=== PATIENT | female | born 1940 | race Caucasian/White ===

== ENCOUNTER 2016-10-04 06:28 | Inpatient (IN) | payer MEDICARE ==
[2016-10-04] VITALS (26 sets, daily range): BP systolic 92–141; BP diastolic 58–98; PULSE 40–128; RESP 14–27; TEMP 97.8–98.5; O2SAT 91–97
[~2016-10-04] VITALS: Ht 160 cm; Wt 76.4 kg
[~2016-10-04 06:28] MED LIST: ALEN70 PO; ASPI325T PO; ASPI325T24 PO; CALC500 PO; CLOP75 PO; GLIM2TAB PO; HYDR5SOL PO; IBUP800 PO; LISI-363 PO; METF-324 PO; OMEG100037 PO; OMEP20TA PO; SERT100 PO; SIMV40TA PO
[2016-10-04] MEDS ORDERED: DILTIAZEM HCL 25 MG/5 ML VIAL IVP ONE (06:45)
[2016-10-04] MEDS ORDERED: DILTIAZEM INJ 125 MG in SODIUM CHLORIDE 0.9% INJ 100 ML IV SCH (06:45)
--- NOTE | 2016-10-04 06:50 | PD ---
HPI Chief Complaint: Chest Pain Time Seen by Provider: 06:43 Travel History International Travel<30 days: No Contact w/Intl Traveler<30days: No Traveled to known affect area: No History of Present Illness HPI The patient is a 76-year-old female with no known history of heart disease or atrial fibrillation who was awoken at 5:30 this morning by a pressure sensation which was constant all over her chest. She felt her heart beating rapidly and irregular beating. She states she has never had an episode like this before. She denies any syncopal or near syncopal spells. She did have some nausea denies any shortness of breath or diaphoresis. There was radiation of pain to her arms. She does have a history of xha-icxnabd-ufzavyhzl diabetes, hypertension, elevated cholesterol but does not smoke. She took a 325 mg aspirin this morning like she does every morning. PFSH Past Medical History Cardiovascular Problems: Yes High Cholesterol: Yes Diabetes: Yes (Oral medications) Diminished Hearing: No Hypertension: Yes Menopausal: Yes Past Surgical History Cholecystectomy: Yes Other Surgery: Yes (VARICOSE VEIN REMOVAL BILATERAL LEGS) Social History Alcohol Use: No Tobacco Use: No Substance Use: No Allergies-Medications (Allergen,Severity, Reaction): Coded Allergies: No Known Allergies (Unverified , 05/03/15) Reported Meds & Prescriptions Reported Meds & Active Scripts Active Reported Motrin 800 Mg Tab (Ibuprofen) 800 Mg Tab 800 Mg PO TID PRN Vituz (Hydrocodone-Chlorpheniramine) 1 Ml Angie 1 Tsp PO Q12 PRN Fish Oil 1000 mg (Calhoun-3 Fatty Acids) 1 Cap Cap 1,000 Mg PO HS Oscal 500 (Calcium Carbonate) 500 Mg Tab 500 Mg PO BID Ecotrin (Aspirin) 325 Mg Tabec 325 Mg PO HS Glimepiride 2 Mg Tab 8 Mg PO DAILY Fosamax (Alendronate Sodium) 70 Mg Tab 70 Mg PO WEEKLY Simvastatin 40 Mg Tab 40 Mg PO HS Aspirin 325 mg (Aspirin) 325 Mg Tab 325 Mg PO DAILY Zoloft (Sertraline HCl) 100 Mg Tab 150 Mg PO HS Omeprazole 20 mg (Omeprazole) 20 Mg Tab 40 Mg PO DAILY Lisinopril 20 mg (Lisinopril) 20 Mg Tab 10 Mg PO DAILY Glucophage (Metformin HCl) 1,000 Mg Tab 1,000 Mg PO BID Plavix (Clopidogrel Bisulfate) 75 Mg Tab 75 Mg PO DAILY Review of Systems Except as stated in HPI: all other systems reviewed are Neg Physical Exam Narrative GENERAL: The patient is alert, oriented 3 and moderate apparent distress with her chest discomfort. She does appear slightly anxious. Her blood pressure is 139/98 and pulse rate is 155 which is an irregular/irregular rhythm. The rest of the vital signs are normal. SKIN: Warm and dry. HEAD: Atraumatic. Normocephalic. EYES: Pupils equal and round. No scleral icterus. No injection or drainage. ENT: No nasal bleeding or discharge. Mucous membranes pink and moist. NECK: Trachea midline. No JVD. CARDIOVASCULAR: Atrial fibrillation with rapid ventricular response. No murmur appreciated. RESPIRATORY: No accessory muscle use. Clear to auscultation. Breath sounds equal bilaterally. GASTROINTESTINAL: Abdomen soft, non-tender, nondistended. Hepatic and splenic margins not palpable. MUSCULOSKELETAL: No obvious deformities. No clubbing. No cyanosis. No edema. NEUROLOGICAL: Awake and alert. No obvious cranial nerve deficits. Motor grossly within normal limits. Normal speech. PSYCHIATRIC: Appropriate mood and affect; insight and judgment normal. Data Data Last Documented VS Vital Signs Date Time Temp Pulse Resp B/P Pulse Ox O2 Delivery O2 Flow Rate FiO2 10/04/16 06:47 155 10/04/16 06:36 97.9 22 139/98 96 Orders Vital Signs (Adult) Q15MX4,Q4H (10/04/16 06:43) Family Support Worker / Telemetry THERESA.Q8H (10/04/16 06:43) Cardiac Rhythm THERESA.Q8H (10/04/16 06:43) ^ Notify Dr: Other (10/04/16 06:43) Diltiazem Inj (Cardizem Inj) (10/04/16 06:45) Diltiazem Inj (Cardizem Inj) (10/04/16 06:45) Electrocardiogram (10/04/16 06:46) B-Type Natriuretic Peptide (10/04/16 06:46) Complete Blood Count With Diff (10/04/16 06:46) Comprehensive Metabolic Panel (10/04/16 06:46) Magnesium (Mg) (10/04/16 06:46) Prothrombin Time / Inr (Pt) (10/04/16 06:46) Act Partial Throm Time (Ptt) (10/04/16 06:46) Troponin I (10/04/16 06:46) Chest, Single Ap (10/04/16 06:46) Ecg Monitoring (10/04/16 06:46) Iv Access Insert/Monitor (10/04/16 06:46) Oximetry (10/04/16 06:46) Oxygen Administration (10/04/16 06:46) Sodium Chloride 0.9% Flush (Ns Flush) (10/04/16 07:00) Diltiazem Inj (Cardizem Inj) (10/04/16 07:00) MDM Medical Decision Making Medical Screen Exam Complete: Yes Emergency Medical Condition: Yes Medical Record Reviewed: Yes Differential Diagnosis Atrial fibrillation with rapid ventricular response, electrolyte disorder, acute coronary syndrome, renal insufficiency, congestive heart failure, Narrative Course The patient has atrial fibrillation with rapid ventricular response. This is her first episode of this. She is symptomatic with this and has chest pressure associated with this rhythm. It is now 0700 and the patient is transferred to Dr. Vazquez. Brian Mc MD Oct 04, 2016 06:50
[2016-10-04] MEDS ORDERED: DILTIAZEM INJ 100 MG in SODIUM CHLORIDE 0.9% INJ 100 ML IV SCH (07:00)
[2016-10-04] MEDS ORDERED: SODIUM CHLORIDE 0.9% FLUSH 5 ML FLUSH IVF PRN (07:00)
[2016-10-04 07:04] LABS: AUTOMATED NEUTROPHIL # 2.8 TH/MM3 (1.8-7.7); BASOPHIL % 0.6 % (0.0-2.0); EOSINOPHIL # 0.1 TH/MM3 (0-0.4); EOSINOPHIL % 1.4 % (0.0-4.0); LYMPH % 42.7 % (9.0-44.0); LYMPHOCYTE # 2.5 TH/MM3 (1.0-4.8); MEAN CELL VOLUME 95.9 FL (80.0-100.0); MEAN CORPUSCULAR HEMOGLOBIN 31.5 PG (27.0-34.0); MEAN CORPUSCULAR HGB CONC 32.9 % (32.0-36.0); MONO % 9.3 % (0.0-8.0); PLATELET COUNT 189 TH/MM3 (150-450); RED CELL DISTRIBUTION WIDTH 12.7 % (11.6-17.2); WHITE BLOOD COUNT 5.9 TH/MM3 (4.0-11.0)
[2016-10-04 07:10] LABS: HEMO FLAGS DIFF FINAL
[2016-10-04] MEDS ORDERED: CYAN100017 PO (07:12)
[2016-10-04] MEDS ORDERED: CYAN100025 SL (07:12)
[2016-10-04] MEDS ORDERED: CHOL1CAP14 PO (07:12)
[2016-10-04] MEDS ORDERED: ASPI325T PO (07:12)
[2016-10-04] MEDS ORDERED: LOSA50TA PO (07:12)
[2016-10-04] MEDS ORDERED: CELE20TA PO (07:12)
[2016-10-04] MEDS ORDERED: FOSA70TA PO (07:12)
[2016-10-04] MEDS ORDERED: ACTO45TA8 PO (07:12)
[2016-10-04] MEDS ORDERED: OMEP20TA PO (07:12)
[2016-10-04] MEDS ORDERED: ATOR40TA16 PO (07:12)
[2016-10-04] MEDS ORDERED: METF1000 PO (07:12)
[2016-10-04] MEDS ORDERED: GLIM1TAB PO (07:12)
--- NOTE | 2016-10-04 07:12 | RADHPO ---
EXAM DATE/TIME: 10/04/2016 06:49 [facility] COMPARISON: CHEST PA & LAT, November 14, 2013, 4:30. INDICATIONS : Chest pain/pressure, rapid heart rate, pain radiating to arms. MEDICAL HISTORY : Hypertension. Hypercholesterolemia. Diabetic. SURGICAL HISTORY : Cholecystectomy. ENCOUNTER: Initial ACUITY: 1 day PAIN SCORE: 6/10 LOCATION: chest FINDINGS: Slight cardiomegaly has not changed. There are atherosclerotic calcifications of the aorta due to chr onic atherosclerotic disease. Lungs are clear. CONCLUSION: No acute cardiopulmonary disease. Dayana Loera MD on October 04, 2016 at 7:10 Board Certified Radiologist. This report was verified electronically.
[2016-10-04 07:13] LABS: CHLORIDE 99 MEQ/L (98-107); POTASSIUM 3.6 MEQ/L (3.5-5.1); SODIUM (NA) 138 MEQ/L (136-145)
[2016-10-04 07:16] LABS: ANION GAP 10 MEQ/L (5-15); BICARBONATE 29.4 MEQ/L (21.0-32.0); BLOOD UREA NITROGEN 15 MG/DL (7-18); MAGNESIUM 1.7 MG/DL (1.5-2.5)
[2016-10-04 07:17] LABS: INTERNATIONAL NORMALIZED RATIO 0.9 RATIO; PROTHROMBIN TIME - PATIENT 10.4 SEC (9.8-11.6)
[2016-10-04 07:19] LABS: ALT (GPT) 29 U/L (10-53); AST (GOT) 19 U/L (15-37)
[2016-10-04 07:20] LABS: GLOMERULAR FILTRATION RATE 99 ML/MIN (>89)
[2016-10-04 07:21] LABS: TOTAL BILIRUBIN ADULT 0.6 MG/DL (0.2-1.0)
[2016-10-04 07:22] LABS: ALKALINE PHOSPHATASE 59 U/L (45-117)
[2016-10-04] MEDS ORDERED: ENOXAPARIN SODIUM 80 MG/0.8 ML SYRINGE SQ ONE (08:00)
[2016-10-04] MEDS ORDERED: ONDANSETRON HCL 4 MG/2 ML VIAL IVP PRN (08:00)
[2016-10-04] MEDS ORDERED: SODIUM CHLORIDE 0.9% FLUSH 5 ML FLUSH FLUSH PRN (08:00)
[2016-10-04] MEDS ORDERED: NALOXONE HCL 0.4 MG/ML AMP IV PRN (08:00)
[2016-10-04] MEDS ORDERED: ACETAMINOPHEN 325 MG TAB PO PRN (08:00)
[2016-10-04] MEDS: SODIUM CHLORIDE 0.9% FLUSH 5 ML FLUSH FLUSH SCH ×2 (08:16→21:39)
--- NOTE | 2016-10-04 09:16 | PD ---
Physical Exam Narrative GENERAL: Well-nourished, well-developed patient. SKIN: Warm and dry. HEAD: Normocephalic and atraumatic. EYES: No injection or drainage. ENT: No nasal drainage noted. NECK: Supple, trachea midline. CARDIOVASCULAR: irregular rate and rhythm RESPIRATORY: No increased effort. No accessory muscle use. NEUROLOGICAL: Awake and alert. Motor and sensory grossly within normal limits. Normal speech. Data Data Last Documented VS Vital Signs Date Time Temp Pulse Resp B/P Pulse Ox O2 Delivery O2 Flow Rate FiO2 10/04/16 07:35 89 116/77 10/04/16 07:13 22 95 Room Air 10/04/16 06:36 97.9 Orders Vital Signs (Adult) Q15MX4,Q4H (10/04/16 06:43) Clay Press Operator / Telemetry THERESA.Q8H (10/04/16 06:43) Cardiac Rhythm THERESA.Q8H (10/04/16 06:43) ^ Notify Dr: Other (10/04/16 06:43) Diltiazem Inj (Cardizem Inj) (10/04/16 06:45) Diltiazem Inj (Cardizem Inj) (10/04/16 06:45) Electrocardiogram (10/04/16 06:46) B-Type Natriuretic Peptide (10/04/16 06:46) Complete Blood Count With Diff (10/04/16 06:46) Comprehensive Metabolic Panel (10/04/16 06:46) Magnesium (Mg) (10/04/16 06:46) Prothrombin Time / Inr (Pt) (10/04/16 06:46) Act Partial Throm Time (Ptt) (10/04/16 06:46) Troponin I (10/04/16 06:46) Chest, Single Ap (10/04/16 06:46) Ecg Monitoring (10/04/16 06:46) Iv Access Insert/Monitor (10/04/16 06:46) Oximetry (10/04/16 06:46) Oxygen Administration (10/04/16 06:46) Sodium Chloride 0.9% Flush (Ns Flush) (10/04/16 07:00) Diltiazem Inj (Cardizem Inj) (10/04/16 07:00) Admit Order (Ed Use Only) (10/04/16 07:50) Labs Laboratory Tests Test 10/04/16 10/04/16 03:32 06:30 White Blood Count 5.9 TH/MM3 Red Blood Count 5.00 MIL/MM3 Hemoglobin 15.8 GM/DL Hematocrit 48.0 % Mean Corpuscular Volume 95.9 FL Mean Corpuscular Hemoglobin 31.5 PG Mean Corpuscular Hemoglobin 32.9 % Concent Red Cell Distribution Width 12.7 % Platelet Count 189 TH/MM3 Mean Platelet Volume 8.8 FL Neutrophils (%) (Auto) 46.0 % Lymphocytes (%) (Auto) 42.7 % Monocytes (%) (Auto) 9.3 % Eosinophils (%) (Auto) 1.4 % Basophils (%) (Auto) 0.6 % Neutrophils # (Auto) 2.8 TH/MM3 Lymphocytes # (Auto) 2.5 TH/MM3 Monocytes # (Auto) 0.5 TH/MM3 Eosinophils # (Auto) 0.1 TH/MM3 Basophils # (Auto) 0.0 TH/MM3 CBC Comment DIFF FINAL Differential Comment Prothrombin Time 10.4 SEC Prothromb Time International 0.9 RATIO Ratio Activated Partial 25.0 SEC Thromboplast Time Sodium Level 138 MEQ/L Potassium Level 3.6 MEQ/L Chloride Level 99 MEQ/L Carbon Dioxide Level 29.4 MEQ/L Anion Gap 10 MEQ/L Blood Urea Nitrogen 15 MG/DL Creatinine 0.59 MG/DL Estimat Glomerular Filtration 99 ML/MIN Rate Random Glucose 212 MG/DL Calcium Level 9.2 MG/DL Magnesium Level 1.7 MG/DL Total Bilirubin 0.6 MG/DL Aspartate Amino Transf 19 U/L (AST/SGOT) Alanine Aminotransferase 29 U/L (ALT/SGPT) Alkaline Phosphatase 59 U/L Troponin I 0.02 NG/ML B-Type Natriuretic Peptide 138 PG/ML Total Protein 8.0 GM/DL Albumin 4.2 GM/DL [facility] Supervised Visit with ARIANA: No Interpretation(s) CBC & BMP Diagram 10/04/16 03:32 10/04/16 06:30 Last 24 hours Impressions Chest X-Ray 10/04/16 0646 Signed Impressions: Service Date/Time: Tuesday, October 04, 2016 06:49 - CONCLUSION: No acute cardiopulmonary disease. Dayana Loera MD Narrative Course Signed over to me to follow blood work and admit for new onset atrial fibrillation with RVR. Blood work shows no emergent abnormalities. Patient is stable on 5 mg of Cardizem drip, will admit to the hospital for further care. Patient updated and agrees to plan of care. Physician Communication Physician Communication dr navarrete states to admit to Dr. Mcintyre in intermediate care Diagnosis Primary Impression: Atrial fibrillation with RVR Admitting Information Admitting Physician Requests: Admit Juanita Bess MD Oct 04, 2016 09:16
--- NOTE | 2016-10-04 16:57 | EKG ---
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 DOCTOR: Ave Avalos Interpretating Date/Time 10/04/2016 16:57:12
[2016-10-04] MEDS ORDERED: WARFARIN SOD 5 MG TAB PO ONE (18:00)
--- NOTE | 2016-10-04 19:09 | MB ---
cc: ALISTAIR ABRAHAM M.D. DATE OF CONSULTATION 10/04/16 Debbie is a very pleasant 76-year lady who awoke with chest pain around 5:30 this morning described as a pressure-like sensation. She also felt palpitations and irregular heartbeat. She was found to be in atrial fibrillation with rapid ventricular response. She does feel better now. She is pain free. She otherwise denies any fever, chills, cough GI or bleeding, paroxysmal nocturnal dyspnea, orthopnea, syncope or dizziness. PAST MEDICAL HISTORY 1. Diabetes, 2. Hypertension, 3. Hyperlipidemia, 4. Hypertension, 5. Menopause 6. Cholecystectomy 7. Varicose vein removal bilateral legs. SOCIAL HISTORY Denies tobacco or alcohol use. ALLERGIES None. MEDICATIONS Prior to admission 1. Motrin 2. ____ 3. Fish oil 4. Os-Carlos 5. Aspirin 325, 6. Glimepiride 7. Fosamax 8. Simvastatin 40 at bedtime, 9. Aspirin 325 daily. 10. Zoloft 11. Omeprazole 12. Lisinopril 20 13. Glucophage 1000 twice a day 14. Plavix 75 mg daily In the hospital, 1. Lovenox 70 mg subcu x1 2. Cardizem drip. PHYSICAL EXAMINATION VITAL SIGNS: Blood pressure 116/79, pulse 74, respiratory rate 17, temperature 97.8. GENERAL: General: She is alert and oriented time three in no acute distress NECK: Supple. No JVD or bruit CARDIOVASCULAR: S1, S2. No murmurs, rubs or gallops. LUNGS: Clear to auscultation bilaterally ABDOMEN: Soft, nontender, positive bowel sounds. EXTREMITIES: No lower extremity edema. LABORATORY DATA White count 5.9. Hemoglobin 15.8. hematocrit 48.0, platelet count 189. Sodium 138, potassium 3.6, congestive heart failure 99, bicarb 29.1, BUN 15, creatinine 0.59. BNP is 138. Troponin is 0.2. INR 0.9. IMAGING STUDIES Chest x-ray - No acute cardiopulmonary disease. CARDIOLOGY STUDIES EKG shows atrial fibrillation at a rate of 155 beats per minute, left ventricular hypertrophy, right bundle-branch block, nonspecific ST-T wave changes. DIAGNOSES 1. Unstable angina 2. Atrial fibrillation with rapid ventricular response 3. Diabetes. 4. Hypertension 5. Hyperlipidemia. DISCUSSION The patient's BONIFACIO score is 3 due to her age greater than 70, history of hypertension and history of diabetes. Therefore, I have recommended Coumadin or oral anticoagulated agent such as Pradaxa, Xarelto, and Eliquis. The patient has chosen to be on Coumadin. I do recommend Coumadin. She will need an INR or two to three. We will need to transition her to oral Cardizem as well. MD NATTY Kruse/ /5:36 PM /6:40 PM
[2016-10-04] MEDS ORDERED: ALENDRONATE SODIUM 70 MG TAB PO SCH (21:00)
[2016-10-04] MEDS ORDERED: PIOGLITAZONE HCL 45 MG TAB PO SCH (21:00)
[2016-10-04] MEDS: metFORMIN HCL 500 MG TAB PO SCH (21:35)
[2016-10-04] MEDS: ASPIRIN 325 MG TAB PO SCH (21:35)
[2016-10-04] MEDS: ATORVASTATIN 40 MG TAB PO SCH (21:36)
[2016-10-04] MEDS: LOSARTAN 50 MG TAB PO SCH (21:36)
[2016-10-04] MEDS: PANTOPRAZOLE SOD 20 MG DELAYED RELEASE TAB PO SCH (21:36)
[2016-10-04] MEDS: CYANOCOBALAMIN 1,000 MCG TAB PO SCH (21:37)
[2016-10-04] MEDS: CITALOPRAM HYDROBROMIDE 20 MG TAB PO SCH (21:39)
[2016-10-04] MEDS: PIOGLITAZONE HCL 15 MG TAB PO SCH (21:45)
[2016-10-04] MEDS: CHOLECALCIFEROL (VIT D3) 5000 UNIT CAP PO SCH (21:53)
[2016-10-04] MEDS: GLIMEPIRIDE 1 MG TAB PO SCH (21:53)
--- NOTE | 2016-10-04 22:20 | MH ---
cc: RUBEN JEAN MD DATE OF ADMISSION 10/04/2016 CHIEF COMPLAINT Chest pain HISTORY OF PRESENT ILLNESS This is a 76-year old female with past medical-surgical history significant for hyperlipidemia, diabetes mellitus, hypertension, history of varicose vein removal bilateral leg, cholecystectomy, who came to the ER at [facility]. She woke up this morning with a pressure in the chest. She felt her heart beating rapidly and she said that she has never had episodes like this before. She denies any syncopal or near syncopal episode. She denies any nausea, vomiting or shortness of breath. No diaphoresis. The pain radiated to the arms, history of non-insulin dependent diabetes mellitus, hypertension and hyperlipidemia but he does not smoke. She 325 mg aspirin this morning. Other than that nothing significant. PAST MEDICAL HISTORY/PAST SURGICAL HISTORY As dictated above. SOCIAL HISTORY Denies smoking or drinking or taking any drugs. 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 FAMILY HISTORY Significant for mother who had coronary artery disease. ALLERGIES NO KNOWN DRUG ALLERGIES. MEDICATIONS 1. Motrin 8 mg p.o. t.i.d. 2. Hydrocodone 3. Chlorpromazine one tsp full by mouth q.12 h p.r.n. pain. 4. Fish oil 1000 mg p.o. daily, 5. Ecotrin 325 mg by mouth at bedtime 6. 2 mg by mouth daily. 7. Fosamax 70 mg by mouth weekly 8. of 40 mg at bedtime pain 9. Aspirin 325 mg p.o. daily. 10. Zoloft 100 mg at bedtime. 11. Omeprazole 20 mg by mouth daily 12. Lisinopril 20 mg p.o. daily. 13. Metformin 1000 mg p.o. b.i.d. 14. Plavix 75 mg p.o. daily. REVIEW OF SYSTEMS All review of systems are negative at the time of examination. PHYSICAL EXAMINATION GENERAL: This is a 76-year female sitting on the bed not in acute distress. VITAL SIGNS: Temperature of 98.2, heart rate 78, respirations 16, blood pressure 100/67, O2 saturation 95% room air. HEENT: Normocephalic, atraumatic. EOMI. PERRL. Oral mucosa moist. NECK: Supple. No visible thyromegaly or neck mass, trachea is central. CVS: Regular rate and rhythm. LUNGS: Respirations clear to auscultation bilaterally. ABDOMEN: Soft, nontender. Bowel sounds audible. EXTREMITIES: No cyanosis or clubbing. Full range of motion of all extremities. NEUROLOGIC: Awake, alert, oriented x4. No focal deficits. SKIN: Warm and dry. PSYCHIATRIC: Cooperative. Mood and affect are normal. LABORATORY DATA CBC is totally unremarkable except for Hemoglobin 15.8, hematocrit 48.0. BMP totally unremarkable except for glucose 212 high. PT 10.4, INR 0.9, APTT 25.0. IMAGING STUDIES Chest x-ray was done and shows no acute cardiopulmonary disease. ASSESSMENT/PLAN This is a 76-year female who came to the ER diagnosed with 1. Chest pain, rule out acute coronary syndrome. Cardiac enzymes within normal limits. Cardiology consulted. Further recommendation per cardiology. 2. History of hyperlipidemia. Continue home medication. 3. History of diabetes mellitus. ADA 1800 ___diet. NovoLog low-dose sliding scale. Check blood sugars at bedtime and monitor blood sugar. Continue home medication. 4. History of hypertension. Continue home medications 5. History of osteoporosis. Continue with Fosamax. 6. DVT prophylaxis with SCDs 7. GI prophylaxis. Protonix 40 mg p.o. daily. We are going to manage the patient on daily basis and make recommendation on daily basis. Ruben Jean MD EA/ /8:57 PM /9:48 PM
[2016-10-05] VITALS (17 sets, daily range): BP systolic 96–153; BP diastolic 48–70; PULSE 38–68; RESP 7–25; TEMP 97.3–98.6; O2SAT 94–97
[2016-10-05] MEDS: GLIMEPIRIDE 1 MG TAB PO SCH ×2 (05:58→17:12)
[2016-10-05 07:00] LABS: HEMATOCRIT 44.7 % (35.0-46.0); MEAN CELL VOLUME 96.3 FL (80.0-100.0); MEAN CORPUSCULAR HGB CONC 33.2 % (32.0-36.0); PLATELET COUNT 168 TH/MM3 (150-450); PROTHROMBIN TIME - PATIENT 10.9 SEC (9.8-11.6); RED BLOOD COUNT 4.64 MIL/MM3 (4.00-5.30)
--- NOTE | 2016-10-05 07:14 | HHI.PR ---
Subjective History of Present Illness patient feel better have atrial fibrillation with RVR on diltiazem ..now in sinus bradycardia d/w myrna BATCH ROOM TECHNICIAN at bed side. cardiology input noted started on lovenox and coumadin. Review of Systems Constitutional Constitutional: Fatigue, Weakness Cardiology CV Remarks bradycardia. Vitals/Results Intake & Output 10/04/16 10/04/16 10/05/16 15:00 23:00 07:00 Intake Total 240 ml 60 ml Output Total 250 ml 250 ml Balance -250 ml 240 ml -190 ml Intake Oral 240 ml 60 ml Output Urine Total 250 ml 250 ml # Voids 1 # Bowel Movements 1 Vital Signs Vital Signs Date Time Temp Pulse Resp B/P Pulse Ox O2 Delivery O2 Flow Rate FiO2 10/05/16 06:00 50 10/05/16 06:00 50 25 153/69 10/05/16 05:00 42 19 123/64 95 10/05/16 05:00 42 10/05/16 04:00 98.6 40 16 123/69 95 10/05/16 04:00 40 10/05/16 03:00 38 18 98/48 95 10/05/16 02:00 40 10/05/16 02:00 40 19 116/60 96 10/05/16 01:00 42 22 132/70 94 10/05/16 00:00 97.7 38 19 109/68 95 10/05/16 00:00 38 10/04/16 23:00 40 10/04/16 23:00 40 17 119/75 95 10/04/16 22:00 40 10/04/16 22:00 40 27 141/72 95 10/04/16 21:16 93 21 10/04/16 21:00 94 Nasal Cannula 2.00 10/04/16 21:00 98.2 46 24 119/71 91 10/04/16 21:00 47 10/04/16 20:30 139/71 10/04/16 20:08 48 16 108/71 95 Room Air 10/04/16 19:25 98.2 78 16 100/67 95 Room Air 10/04/16 19:25 16 95 Room Air 10/04/16 17:55 98.2 64 17 116/77 93 Room Air 10/04/16 17:29 94 Nasal Cannula 2.00 10/04/16 16:30 74 17 116/79 92 Nasal Cannula 2 10/04/16 14:44 Room Air 10/04/16 14:13 97.8 74 14 100/67 94 Room Air 10/04/16 13:04 73 17 92/58 94 Room Air 10/04/16 11:48 98.5 78 16 115/64 93 Room Air 10/04/16 10:47 81 17 102/69 96 Room Air 10/04/16 10:20 96 113/67 10/04/16 10:00 99 101/69 10/04/16 09:45 93 102/68 97 10/04/16 09:42 125 114/66 10/04/16 09:35 118 105/72 10/04/16 09:22 128 119/89 10/04/16 08:15 94 124/67 10/04/16 07:55 86 119/71 10/04/16 07:35 89 116/77 CBC/BMP: 10/04/16 0332 10/04/16 0630 Lab Results Laboratory Tests Test 10/05/16 06:18 Prothrombin Time 10.9 SEC Prothromb Time International 1.0 RATIO Ratio Physical Exam General General Appearance: Well Developed, Well Nourished, No Acute Distress, Comfortable Eyes Eye Exam: Pupils Equal, Pupils Reactive, Sclera White, Extraocular Movement Intact Throat Throat Exam: Oral Mucosa [place] & Moist, Oral Pharynx Normal Neck Neck Exam: Neck Supple, Trachea Midline Pulmonary Resp Exam: Clear Bilaterally, Breath Sounds Equal Cardiology CV Exam: Regular, Normal Sinus Rhythm Gastrointestinal/Abdomen GI Exam: Soft, Non-Tender, Bowel Sounds Present Musculoskeletal MS Exam: Normal Tone Integumentary Skin Exam: Clear, Warm, Dry, Intact, Normal Turgor Neurologic Neuro Exam: Alert, Awake, Oriented, Speech Clear, No Focal Deficits VTE Prophylaxis VTE Prophylaxis Meds: Lovenox PUD Prophylasis PUD Prophylaxis: Protonix Assessment/Plan Assessment/Plan ASSESSMENT/PLAN This is a 76-year female who came to the ER diagnosed with 1. Chest pain, rule out acute coronary syndrome. Cardiac enzymes within normal limits. Cardiology input noted. Further recommendation per cardiology. 2. History of hyperlipidemia. Continue home medication. 3. History of diabetes mellitus. ADA 1800 ___diet. NovoLog low-dose sliding scale. Check blood sugars at bedtime and monitor blood sugar. Continue home medication. 4. History of hypertension. Continue home medications 5. History of osteoporosis. Continue with Fosamax. 6. DVT prophylaxis with lovenox. 7. GI prophylaxis. Protonix 40 mg p.o. daily. 8. ASSESSMENT/PLAN This is a 76-year female who came to the ER diagnosed with 1. Chest pain, rule out acute coronary syndrome. Cardiac enzymes within normal limits. Cardiology consulted. Further recommendation per cardiology. 2. History of hyperlipidemia. Continue home medication. 3. History of diabetes mellitus. ADA 1800 ___diet. NovoLog low-dose sliding scale. Check blood sugars at bedtime and monitor blood sugar. Continue home medication. 4. History of hypertension. Continue home medications 5. History of osteoporosis. Continue with Fosamax. 6. DVT prophylaxis with SCDs 7. GI prophylaxis. Protonix 40 mg p.o. daily. 8. Atrial fibrillation with RVR on diltiazem ..now in sinus bradycardia . cardiology input noted started on lovenox and coumadin. ok to dc home today per cardiology f/u with pcp/ cardiology 1 week. condition at discharge good activity as tolerated. diet cardic./ADA 1800 Calories. medicine see discharge medicine list. Ruben Mcintyre MD Oct 05, 2016 07:14
[2016-10-05 07:22] LABS: BICARBONATE 27.9 MEQ/L (21.0-32.0); POTASSIUM 4.5 MEQ/L (3.5-5.1)
[2016-10-05 07:25] LABS: HEMO FLAGS AUTO DIFF
[2016-10-05 07:29] LABS: BANDS 3 % (0-6); BASOPHILS 1 % (0-2); NEUTROPHIL # MANUAL DIFF 3.9 TH/MM3 (1.8-7.7); POLYS (SEG NEUTROPHILS) 46 % (16-70); WBC DIFF SAMPLE 100
[2016-10-05 07:30] LABS: PLATELET ESTIMATE SMEAR NORMAL (NORMAL); PLATELET MORPHOLOGY NORMAL (NORMAL); SCAN/DIFF FINAL DIFF MANUAL
[2016-10-05] MEDS: SODIUM CHLORIDE 0.9% FLUSH 5 ML FLUSH FLUSH SCH ×2 (08:27→20:38)
[2016-10-05] MEDS: ASPIRIN 325 MG TAB PO SCH (08:27)
[2016-10-05] MEDS: metFORMIN HCL 500 MG TAB PO SCH ×2 (08:28→17:12)
[2016-10-05] MEDS: LOSARTAN 50 MG TAB PO SCH (08:28)
[2016-10-05] MEDS: CYANOCOBALAMIN 1,000 MCG TAB PO SCH (08:28)
[2016-10-05] MEDS: PANTOPRAZOLE SOD 20 MG DELAYED RELEASE TAB PO SCH (08:28)
[2016-10-05] MEDS: CITALOPRAM HYDROBROMIDE 20 MG TAB PO SCH (08:28)
[2016-10-05] MEDS: PILL SPLITTER OTHER PRN (08:29)
[2016-10-05] MEDS ORDERED: INFLUENZA VIRUS VACCINE (QUADRIVALENT) 0.5 ML SYR IM ONE (10:00)
[2016-10-05] MEDS: PIOGLITAZONE HCL 15 MG TAB PO SCH (12:06)
--- NOTE | 2016-10-05 12:56 | PD.CARD.PN ---
Subjective Subjective Remarks assymptomatic, alert in nad Objective Vital Signs / I&O Vital Signs Date Time Temp Pulse Resp B/P Pulse Ox O2 Delivery O2 Flow Rate FiO2 10/05/16 09:00 44 18 10/05/16 08:00 94 Nasal Cannula 2.00 10/05/16 08:00 41 10/05/16 08:00 97.8 40 16 128/66 95 10/05/16 06:00 50 10/05/16 06:00 50 25 153/69 10/05/16 05:00 42 19 123/64 95 10/05/16 05:00 42 10/05/16 04:00 98.6 40 16 123/69 95 10/05/16 04:00 40 10/05/16 03:00 38 18 98/48 95 10/05/16 02:00 40 10/05/16 02:00 40 19 116/60 96 10/05/16 01:00 42 22 132/70 94 10/05/16 00:00 97.7 38 19 109/68 95 10/05/16 00:00 38 10/04/16 23:00 40 10/04/16 23:00 40 17 119/75 95 10/04/16 22:00 40 10/04/16 22:00 40 27 141/72 95 10/04/16 21:16 93 21 10/04/16 21:00 94 Nasal Cannula 2.00 10/04/16 21:00 98.2 46 24 119/71 91 10/04/16 21:00 47 10/04/16 20:30 139/71 10/04/16 20:08 48 16 108/71 95 Room Air 10/04/16 19:25 98.2 78 16 100/67 95 Room Air 10/04/16 19:25 16 95 Room Air 10/04/16 17:55 98.2 64 17 116/77 93 Room Air 10/04/16 17:29 94 Nasal Cannula 2.00 10/04/16 16:30 74 17 116/79 92 Nasal Cannula 2 10/04/16 14:44 Room Air 10/04/16 14:13 97.8 74 14 100/67 94 Room Air 10/04/16 13:04 73 17 92/58 94 Room Air I/O 10/04/16 10/04/16 10/04/16 10/05/1610/05/17 2/25/17 07:00 15:00 23:00 07:00 15:00 23:00 Intake Total 240 ml 60 ml Output Total 250 ml 250 ml Balance -250 ml 240 ml -190 ml Intake Oral 240 ml 60 ml Output Urine Total 250 ml 250 ml # Voids 1 # Bowel Movements 1 Laboratory GENERAL: SKIN: Warm and dry. HEAD: Normocephalic. EYES: No scleral icterus. No injection or drainage. NECK: Supple, trachea midline. No JVD or lymphadenopathy. CARDIOVASCULAR: Regular rate and rhythm without murmurs, gallops, or rubs. RESPIRATORY: Breath sounds equal bilaterally. No accessory muscle use. GASTROINTESTINAL: Abdomen soft, non-tender, nondistended. MUSCULOSKELETAL: No cyanosis, or edema. BACK: Nontender without obvious deformity. No CVA tenderness. Laboratory Tests Test 10/05/16 06:18 White Blood Count 8.0 TH/MM3 Red Blood Count 4.64 MIL/MM3 Hemoglobin 14.8 GM/DL Hematocrit 44.7 % Mean Corpuscular Volume 96.3 FL Mean Corpuscular Hemoglobin 32.0 PG Mean Corpuscular Hemoglobin 33.2 % Concent Red Cell Distribution Width 13.0 % Platelet Count 168 TH/MM3 Mean Platelet Volume 9.4 FL Neutrophils (%) (Auto) % Lymphocytes (%) (Auto) % Monocytes (%) (Auto) % Eosinophils (%) (Auto) % Basophils (%) (Auto) % Neutrophils # (Auto) TH/MM3 Lymphocytes # (Auto) TH/MM3 Monocytes # (Auto) TH/MM3 Eosinophils # (Auto) TH/MM3 Basophils # (Auto) TH/MM3 CBC Comment AUTO DIFF Differential Total Cells 100 Counted Neutrophils % (Manual) 46 % Band Neutrophils % 3 % Lymphocytes % 42 % Monocytes % 8 % Basophils % 1 % Neutrophils # (Manual) 3.9 TH/MM3 Differential Comment FINAL DIFF MANUAL Platelet Estimate NORMAL Platelet Morphology Comment NORMAL Red Cell Morphology Comment NORMAL Prothrombin Time 10.9 SEC Prothromb Time International 1.0 RATIO Ratio Sodium Level 141 MEQ/L Potassium Level 4.5 MEQ/L Chloride Level 104 MEQ/L Carbon Dioxide Level 27.9 MEQ/L Anion Gap 9 MEQ/L Blood Urea Nitrogen 21 MG/DL Creatinine 0.65 MG/DL Estimat Glomerular Filtration 89 ML/MIN Rate Random Glucose 173 MG/DL Calcium Level 9.0 MG/DL Assessment and Plan Problem List: (1) Atrial fibrillation with RVR (2) Unstable angina (3) Diabetes mellitus Assessment and Plan 1.) PAF - possible tachy-bambi; dc cardizem, continue tele, coumadin 2.) [place] - assymptomatic, continue coumadin, angina appeared to be rate related Juan Carlos Larios MD Oct 05, 2016 12:56
[2016-10-05] MEDS: CHOLECALCIFEROL (VIT D3) 5000 UNIT CAP PO SCH (13:24)
[2016-10-05] MEDS ORDERED: ENOXAPARIN SODIUM 80 MG/0.8 ML SYRINGE SQ ONE (13:30)
[2016-10-05] MEDS: WARFARIN SOD 5 MG TAB PO SCH (17:12)
[2016-10-05] MEDS: ATORVASTATIN 40 MG TAB PO SCH (20:38)
[2016-10-06] VITALS (8 sets, daily range): BP systolic 109–131; BP diastolic 53–74; PULSE 50–66; RESP 20–26; TEMP 98–98.9; O2SAT 93–96
[2016-10-06] MEDS: ENOXAPARIN SODIUM 80 MG/0.8 ML SYRINGE SQ SCH ×2 (00:42→13:04)
[2016-10-06 06:12] LABS: AUTOMATED NEUTROPHIL # 3.5 TH/MM3 (1.8-7.7); BASOPHIL % 0.3 % (0.0-2.0); EOSINOPHIL # 0.1 TH/MM3 (0-0.4); EOSINOPHIL % 1.4 % (0.0-4.0); HEMO FLAGS DIFF FINAL; LYMPH % 26.9 % (9.0-44.0); LYMPHOCYTE # 1.5 TH/MM3 (1.0-4.8); MEAN CELL VOLUME 94.7 FL (80.0-100.0); MEAN CORPUSCULAR HEMOGLOBIN 31.3 PG (27.0-34.0); MEAN CORPUSCULAR HGB CONC 33.1 % (32.0-36.0); MONO % 9.1 % (0.0-8.0); NEUT % 62.3 % (16.0-70.0); PLATELET COUNT 150 TH/MM3 (150-450); RED BLOOD COUNT 4.32 MIL/MM3 (4.00-5.30); RED CELL DISTRIBUTION WIDTH 12.6 % (11.6-17.2); WHITE BLOOD COUNT 5.6 TH/MM3 (4.0-11.0)
[2016-10-06 06:18] LABS: CHLORIDE 104 MEQ/L (98-107); POTASSIUM 4.7 MEQ/L (3.5-5.1); SODIUM (NA) 141 MEQ/L (136-145)
[2016-10-06 06:21] LABS: INTERNATIONAL NORMALIZED RATIO 1.1 RATIO; PROTHROMBIN TIME - PATIENT 11.8 SEC (9.8-11.6)
[2016-10-06 06:30] LABS: ALKALINE PHOSPHATASE 44 U/L (45-117); ALT (GPT) 27 U/L (10-53); ANION GAP 7 MEQ/L (5-15); AST (GOT) 14 U/L (15-37); BICARBONATE 29.7 MEQ/L (21.0-32.0); BLOOD UREA NITROGEN 24 MG/DL (7-18); GLOMERULAR FILTRATION RATE 83 ML/MIN (>89); TOTAL BILIRUBIN ADULT 0.6 MG/DL (0.2-1.0)
[2016-10-06] MEDS: GLIMEPIRIDE 1 MG TAB PO SCH (06:46)
[2016-10-06] MEDS: SODIUM CHLORIDE 0.9% FLUSH 5 ML FLUSH FLUSH SCH (09:32)
[2016-10-06] MEDS: CHOLECALCIFEROL (VIT D3) 5000 UNIT CAP PO SCH (09:33)
[2016-10-06] MEDS: PANTOPRAZOLE SOD 20 MG DELAYED RELEASE TAB PO SCH (09:33)
[2016-10-06] MEDS: LOSARTAN 50 MG TAB PO SCH (09:33)
[2016-10-06] MEDS: CYANOCOBALAMIN 1,000 MCG TAB PO SCH (09:33)
[2016-10-06] MEDS: metFORMIN HCL 500 MG TAB PO SCH (09:33)
[2016-10-06] MEDS: PILL SPLITTER OTHER PRN (09:34)
[2016-10-06] MEDS: PIOGLITAZONE HCL 15 MG TAB PO SCH (09:34)
[2016-10-06] MEDS: CITALOPRAM HYDROBROMIDE 20 MG TAB PO SCH (09:34)
[2016-10-06] MEDS ORDERED: COUM5TAB PO (13:08)
[2016-10-06] MEDS ORDERED: ENOX80P SQ (13:09)
--- NOTE | 2016-10-06 13:10 | HHI.PR ---
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 cardiology input noted started on lovenox and coumadin. Review of Systems Constitutional Constitutional: Fatigue, Weakness Cardiology CV Remarks bradycardia. Vitals/Results Intake & Output 10/05/16 10/05/16 10/06/16 15:00 23:00 07:00 Intake Total 520 ml 440 ml 120 ml Balance 520 ml 440 ml 120 ml Intake Oral 520 ml 440 ml 120 ml # Voids 2 2 2 # Bowel Movements 1 2 0 Vital Signs Vital Signs Date Time Temp Pulse Resp B/P Pulse Ox O2 Delivery O2 Flow Rate FiO2 10/06/16 10:00 62 24 10/06/16 09:00 66 23 10/06/16 08:45 98.6 54 21 118/74 93 10/06/16 08:00 51 10/06/16 08:00 Room Air 93 10/06/16 04:00 52 10/06/16 04:00 98.9 50 20 120/74 96 10/06/16 00:29 88 Bi-Pap 100 10/06/16 00:00 51 10/06/16 00:00 98.4 52 21 109/53 10/05/16 20:00 97.7 52 7 112/66 96 10/05/16 20:00 68 10/05/16 19:30 97 Nasal Cannula 2.00 10/05/16 19:00 Nasal Cannula 100 10/05/16 17:00 54 23 10/05/16 16:30 56 12 10/05/16 16:21 98.2 58 24 96/56 94 10/05/16 16:00 52 10/05/16 16:00 52 20 CBC/BMP: 10/06/16 0603 10/06/16 0603 Lab Results Laboratory Tests Test 10/06/16 06:03 White Blood Count 5.6 TH/MM3 Red Blood Count 4.32 MIL/MM3 Hemoglobin 13.5 GM/DL Hematocrit 41.0 % Mean Corpuscular Volume 94.7 FL Mean Corpuscular Hemoglobin 31.3 PG Mean Corpuscular Hemoglobin 33.1 % Concent Red Cell Distribution Width 12.6 % Platelet Count 150 TH/MM3 Mean Platelet Volume 7.7 FL Neutrophils (%) (Auto) 62.3 % Lymphocytes (%) (Auto) 26.9 % Monocytes (%) (Auto) 9.1 % Eosinophils (%) (Auto) 1.4 % Basophils (%) (Auto) 0.3 % Neutrophils # (Auto) 3.5 TH/MM3 Lymphocytes # (Auto) 1.5 TH/MM3 Monocytes # (Auto) 0.5 TH/MM3 Eosinophils # (Auto) 0.1 TH/MM3 Basophils # (Auto) 0.0 TH/MM3 CBC Comment DIFF FINAL Differential Comment Prothrombin Time 11.8 SEC Prothromb Time International 1.1 RATIO Ratio Sodium Level 141 MEQ/L Potassium Level 4.7 MEQ/L Chloride Level 104 MEQ/L Carbon Dioxide Level 29.7 MEQ/L Anion Gap 7 MEQ/L Blood Urea Nitrogen 24 MG/DL Creatinine 0.69 MG/DL Estimat Glomerular Filtration 83 ML/MIN Rate Random Glucose 158 MG/DL Calcium Level 8.7 MG/DL Total Bilirubin 0.6 MG/DL Aspartate Amino Transf 14 U/L (AST/SGOT) Alanine Aminotransferase 27 U/L (ALT/SGPT) Alkaline Phosphatase 44 U/L Total Protein 6.4 GM/DL Albumin 3.3 GM/DL Physical Exam General General Appearance: Well Developed, Well Nourished, No Acute Distress, Comfortable Eyes Eye Exam: Pupils Reactive, Sclera White, Extraocular Movement Intact Throat Throat Exam: Oral Mucosa [place] & Moist, Oral Pharynx Normal Neck Neck Exam: Neck Supple, Trachea Midline Pulmonary Resp Exam: Clear Bilaterally, Breath Sounds Equal, No Distress Cardiology CV Exam: Regular, Normal Sinus Rhythm Gastrointestinal/Abdomen GI Exam: Soft, Non-Tender, Bowel Sounds Present Musculoskeletal MS Exam: Normal Tone Integumentary Skin Exam: Clear, Warm, Dry, Intact, Normal Turgor Extremeties Extremities Exam: No Edema Neurologic Neuro Exam: Alert, Awake, Oriented, Speech Clear, Moving All Extremities, No Focal Deficits Psychiatric Psych Exam: Appropriate Responses VTE Prophylaxis VTE Prophylaxis Meds: Lovenox PUD Prophylasis PUD Prophylaxis: Protonix Assessment/Plan Assessment/Plan ASSESSMENT/PLAN This is a 76-year female who came to the ER diagnosed with 1. Chest pain, rule out acute coronary syndrome. Cardiac enzymes within normal limits. Cardiology input noted. Further recommendation per cardiology. 2. History of hyperlipidemia. Continue home medication. 3. History of diabetes mellitus. ADA 1800 ___diet. NovoLog low-dose sliding scale. Check blood sugars at bedtime and monitor blood sugar. Continue home medication. 4. History of hypertension. Continue home medications 5. History of osteoporosis. Continue with Fosamax. 6. DVT prophylaxis with lovenox. 7. GI prophylaxis. Protonix 40 mg p.o. daily. 8. ASSESSMENT/PLAN This is a 76-year female who came to the ER diagnosed with 1. Chest pain, rule out acute coronary syndrome. Cardiac enzymes within normal limits. Cardiology consulted. Further recommendation per cardiology. 2. History of hyperlipidemia. Continue home medication. 3. History of diabetes mellitus. ADA 1800 ___diet. NovoLog low-dose sliding scale. Check blood sugars at bedtime and monitor blood sugar. Continue home medication. 4. History of hypertension. Continue home medications 5. History of osteoporosis. Continue with Fosamax. 6. DVT prophylaxis with SCDs 7. GI prophylaxis. Protonix 40 mg p.o. daily. 8. Atrial fibrillation with RVR on diltiazem ..now in sinus bradycardia . cardiology input noted started on lovenox and coumadin. ok to dc home today per cardiology f/u with pcp/ cardiology 1 week. condition at discharge good activity as tolerated. diet cardic./ADA 1800 Calories. medicine see discharge medicine list. Discussed Condition with: Patient Ruben Mcintyre MD Oct 06, 2016 13:10
[2016-10-06] MEDS: WARFARIN SOD 5 MG TAB PO SCH (13:47)
--- NOTE | 2016-10-06 13:48 | PD.CARD.PN ---
Subjective Subjective Remarks alert in nad Objective Vital Signs / I&O Vital Signs Date Time Temp Pulse Resp B/P Pulse Ox O2 Delivery O2 Flow Rate FiO2 10/06/16 12:03 98.0 60 26 131/71 95 10/06/16 12:00 60 10/06/16 10:00 62 24 10/06/16 09:00 66 23 10/06/16 08:45 98.6 54 21 118/74 93 10/06/16 08:00 51 10/06/16 08:00 Room Air 93 10/06/16 04:00 52 10/06/16 04:00 98.9 50 20 120/74 96 10/06/16 00:29 88 Bi-Pap 100 10/06/16 00:00 51 10/06/16 00:00 98.4 52 21 109/53 10/05/16 20:00 97.7 52 7 112/66 96 10/05/16 20:00 68 10/05/16 19:30 97 Nasal Cannula 2.00 10/05/16 19:00 Nasal Cannula 100 10/05/16 17:00 54 23 10/05/16 16:30 56 12 10/05/16 16:21 98.2 58 24 96/56 94 10/05/16 16:00 52 10/05/16 16:00 52 20 I/O 10/05/16 10/05/16 10/05/16 10/06/16 10/06/16 10/06/16 07:00 15:00 23:00 07:00 15:00 23:00 Intake Total 60 ml 520 ml 440 ml 120 ml Output Total 250 ml Balance -190 ml 520 ml 440 ml 120 ml Intake Oral 60 ml 520 ml 440 ml 120 ml Output Urine Total 250 ml # Voids 2 2 2 # Bowel Movements 1 1 2 0 Laboratory GENERAL: SKIN: Warm and dry. HEAD: Normocephalic. EYES: No scleral icterus. No injection or drainage. NECK: Supple, trachea midline. No JVD or lymphadenopathy. CARDIOVASCULAR: Regular rate and rhythm without murmurs, gallops, or rubs. RESPIRATORY: Breath sounds equal bilaterally. No accessory muscle use. GASTROINTESTINAL: Abdomen soft, non-tender, nondistended. MUSCULOSKELETAL: No cyanosis, or edema. BACK: Nontender without obvious deformity. No CVA tenderness. Laboratory Tests Test 10/06/16 06:03 White Blood Count 5.6 TH/MM3 Red Blood Count 4.32 MIL/MM3 Hemoglobin 13.5 GM/DL Hematocrit 41.0 % Mean Corpuscular Volume 94.7 FL Mean Corpuscular Hemoglobin 31.3 PG Mean Corpuscular Hemoglobin 33.1 % Concent Red Cell Distribution Width 12.6 % Platelet Count 150 TH/MM3 Mean Platelet Volume 7.7 FL Neutrophils (%) (Auto) 62.3 % Lymphocytes (%) (Auto) 26.9 % Monocytes (%) (Auto) 9.1 % Eosinophils (%) (Auto) 1.4 % Basophils (%) (Auto) 0.3 % Neutrophils # (Auto) 3.5 TH/MM3 Lymphocytes # (Auto) 1.5 TH/MM3 Monocytes # (Auto) 0.5 TH/MM3 Eosinophils # (Auto) 0.1 TH/MM3 Basophils # (Auto) 0.0 TH/MM3 CBC Comment DIFF FINAL Differential Comment Prothrombin Time 11.8 SEC Prothromb Time International 1.1 RATIO Ratio Sodium Level 141 MEQ/L Potassium Level 4.7 MEQ/L Chloride Level 104 MEQ/L Carbon Dioxide Level 29.7 MEQ/L Anion Gap 7 MEQ/L Blood Urea Nitrogen 24 MG/DL Creatinine 0.69 MG/DL Estimat Glomerular Filtration 83 ML/MIN Rate Random Glucose 158 MG/DL Calcium Level 8.7 MG/DL Total Bilirubin 0.6 MG/DL Aspartate Amino Transf 14 U/L (AST/SGOT) Alanine Aminotransferase 27 U/L (ALT/SGPT) Alkaline Phosphatase 44 U/L Total Protein 6.4 GM/DL Albumin 3.3 GM/DL Assessment and Plan Problem List: (1) Atrial fibrillation with RVR (2) Unstable angina (3) Diabetes mellitus Assessment and Plan 1.) PAF - possible tachy-bambi; dc cardizem, continue tele, coumadin 2.) [place] - assymptomatic, continue coumadin, angina appeared to be rate related 3.) ok to dc from cv standpoint f/u dr hunt tomorrow, d/w patient and nurse Juan Carlos Larios MD Oct 06, 2016 13:48
--- NOTE | 2016-10-06 14:10 | HHI.FF ---
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 My clinical findings support the need for the requested home health care services because: Ltd mobility - disease progression Limited ability to care for self I certify that my clinical findings support that this patient is homebound because: Unsafe to leave home unassisted Ruben Mcintyre MD Oct 06, 2016 14:10
== END 2016-10-06 14:12 | disposition home or self-care (01) | DRG 309 ==
LOC: PHED 06:28 → PHEDA 07:52 → PHICU 20:30
PROVIDERS: ADMIT Family Medicine; ATTEND Family Medicine
DX: I48.0 Paroxysmal atrial fibrillation (principal); I20.0 Unstable angina; I49.5 Sick sinus syndrome; E11.9 Type 2 diabetes mellitus without complications; I10 Essential (primary) hypertension; E78.5 Hyperlipidemia, unspecified; I83.93 Asymptomatic varicose veins of bilateral lower extremities; E78.00 Pure hypercholesterolemia, unspecified; M81.0 Age-related osteoporosis without current pathological fracture; Z79.84 Long term (current) use of oral hypoglycemic drugs; Z23 Encounter for immunization
CPT/HCPCS: 71010; 80048; 80053; 83735; 83880; 84484; 85007; 85025; 85027; 85610; 85730; 90471; 90686; 93005; 96365; 96376; G0008; J1650; J2405; Q2038

== ENCOUNTER 2017-02-08 17:55 | Emergency (ER) | payer MEDICARE ==
[~2017-02-08] VITALS: Ht 162.6 cm; Wt 79.0 kg
[~2017-02-08 17:55] MED LIST changes: +ACTO45TA8 PO; -ALEN70 PO; -ASPI325T24 PO; +ATOR40TA16 PO; -CALC500 PO; +CELE20TA PO; +CHOL1CAP14 PO; -CLOP75 PO; +COUM5TAB PO; +CYAN100017 PO; +ENOX80P SQ; +FOSA70TA PO; +GLIM1TAB PO; -GLIM2TAB PO; -HYDR5SOL PO; -IBUP800 PO; -LISI-363 PO; +LOSA50TA PO; -METF-324 PO; +METF1000 PO; -OMEG100037 PO; -SERT100 PO; -SIMV40TA PO
[2017-02-08 18:15] VITALS: BP 191/80; PULSE 65; RESP 18; TEMP 97.7; O2SAT 99
--- NOTE | 2017-02-08 18:19 | PD ---
HPI Chief Complaint: Injury Time Seen by Provider: 18:11 (Liz Henry) Time Seen by Provider: 18:09 (Tete Gallegos MD) Travel History International Travel<30 days: No Contact w/Intl Traveler<30days: No (Tete Gallegos MD) History of Present Illness HPI 76-year-old female presents to emergency department for evaluation of left wrist pain status post fall prior to arrival. Patient reports while working in her garden she tripped and fell onto the left side attempting to catch herself with her left upper extremity. She denies head injury or loss of consciousness. Patient is on Coumadin for atrial fibrillation. She denies headache, neck pain, chest pain, shortness of breath, abdominal pain, numbness/ tingling/weakness in extremities. She reports pain within the left wrist, nonradiating, constant, worse with movement, no alleviating factors. Severity 6 out of 10. She denies numbness or tingling within the extremity. She reports normal sensation in the hand. (Liz Henry) PFSH Past Medical History Arthritis: Yes Depression: Yes Heart Rhythm Problems: Yes (new afib) Cancer: No Cardiovascular Problems: Yes High Cholesterol: Yes Chest Pain: Yes Diabetes: Yes (Oral medications) Diminished Hearing: No Endocrine: Yes Genitourinary: No Hypertension: Yes Musculoskeletal: Yes Neurologic: No Psychiatric: Yes Reproductive: No Respiratory: No Thyroid Disease: No Menopausal: Yes (Liz Henry) Past Surgical History Abdominal Surgery: Yes (cholestectomy) Cholecystectomy: Yes Other Surgery: Yes (VARICOSE VEIN REMOVAL BILATERAL LEGS) (Liz Henry) Social History Alcohol Use: No Tobacco Use: No Substance Use: No (Liz Henry) Allergies-Medications (Allergen,Severity, Reaction): Coded Allergies: No Known Allergies (Unverified , 05/03/15) Reported Meds & Prescriptions Reported Meds & Active Scripts Active Percocet (Oxycodone-Acetaminophen) 5-325 mg Tab 1 Tab PO Q6H PRN Coumadin (Warfarin) 5 Mg Tab 5 Mg PO DAILY@1600 Reported D3 Maximum Strength (Cholecalciferol) 5,000 Unit Cap 5,000 Units PO DAILY Aspirin 325 Mg Tab 325 Mg PO DAILY Fosamax (Alendronate Sodium) 70 Mg Tab 35 Mg PO Q7D Glimepiride 1 Mg Tab 1 Mg PO BIDAC Take with breakfast or first main meal Atorvastatin (Atorvastatin Calcium) 40 Mg Tab 40 Mg PO HS Metformin (Metformin HCl) 1,000 Mg Tab 1,000 Mg PO BIDPC With meals Losartan (Losartan Potassium) 50 Mg Tab 50 Mg PO DAILY Celexa (Citalopram Hydrobromide) 20 Mg Tab 30 Mg PO DAILY Omeprazole 20 Mg Tab 20 Mg PO DAILY Actos (Pioglitazone HCl) 45 Mg Tab 45 Mg PO DAILY (Tete Gallegos MD) Review of Systems Except as stated in HPI: all other systems reviewed are Neg General / Constitutional: No: Fever Eyes: No: Visual changes HENT: No: Headaches Cardiovascular: No: Chest Pain or Discomfort Respiratory: No: Shortness of Breath Gastrointestinal: No: Abdominal Pain Genitourinary: No: Dysuria Musculoskeletal: Positive: Other (left wrist pain with obvious swelling in the dorsal aspect) (Liz Henry) Physical Exam Narrative GENERAL: Alert, well-appearing female. No acute distress SKIN: Focused skin assessment warm/dry. HEAD: Atraumatic. Normocephalic. EYES: Pupils equal and round. No scleral icterus. No injection or drainage. ENT: No nasal bleeding or discharge. Mucous membranes pink and moist. NECK: Trachea midline. No JVD. No cervical midline tenderness. CARDIOVASCULAR: Regular rate and rhythm. No murmur appreciated. RESPIRATORY: No accessory muscle use. Clear to auscultation. Breath sounds equal bilaterally. GASTROINTESTINAL: Abdomen soft, non-tender, nondistended. Hepatic and splenic margins not palpable. MUSCULOSKELETAL: No obvious deformities. No clubbing. No cyanosis. No edema. Left upper extremity: Obvious swelling to the dorsal aspect of the left wrist, range of motion within the wrist causes acute pain, 2+ distal radius pulse. Extremity is warm, brisk cap refill, normal sensation. NEUROLOGICAL: Awake and alert. No obvious cranial nerve deficits. Motor grossly within normal limits. Normal speech. PSYCHIATRIC: Appropriate mood and affect; insight and judgment normal. (Liz Henry) Data Data Last Documented VS Vital Signs Date Time Temp Pulse Resp B/P Pulse Ox O2 Delivery O2 Flow Rate FiO2 02/08/17 18:15 97.7 65 18 191/80 99 (Tete Gallegos MD) Orders Ct Brain W/O Iv Contrast(Rout) (02/08/17 ) Wrist, Complete ([id number]) (02/08/17 ) Splint Or Brace Apply/Monitor (02/08/17 18:58) Oxycodone-Acetamin 5-325 Mg (Percocet (02/08/17 19:15) Sling Cradle Arm (02/08/17 ) Fiberglass Sugartong Sp Ad Arm (02/08/17 ) (Tete Gallegos MD) MDM Medical Decision Making Medical Screen Exam Complete: Yes Emergency Medical Condition: Yes Differential Diagnosis Left wrist fracture versus contusion versus sprain versus intracranial hemorrhage versus subdural hemorrhage Narrative Course 76-year-old female presents emergency department for evaluation of left wrist pain after mechanical fall. Patient is currently on Coumadin. She denies head injury of loss consciousness. On exam patient has notable swelling to the dorsal aspect of the left wrist. The child is neurovascularly intact. CT neck or pending CT scan of brain: No intracranial hemorrhage X-ray left wrist: Distal radius and ulna fracture with mild displacement Diagnostic findings discussed with patient and family. The extremity is neurovascularly intact with strong distal radius pulse. Patient only has mild pain at rest. She will be splinted in a sugar tong splint. She is instructed to call make an appointment for follow-up with orthopedics this week. Pain medication. Ice and elevate the extremity. Return precautions discussed. ( Liz Henry) Diagnosis Primary Impression: Closed fracture distal radius and ulna Qualified Code: S52.502A - Closed fracture distal radius and ulna, left, initial encounter Referrals: Abundio Ponce MD Orthopedist Additional Instructions: Keep the splint in place until your follow-up with orthopedics. Use the sling to elevate the extremity. Take the pain medication as needed for pain. Drink plenty of fluids and rest. Return to the emergency department if you have severe increasing pain, numbness or tingling, change in coloration of the fingers. Scripts Oxycodone-Acetaminophen (Percocet)5-325 mg Tab1 Tab PO Q6H PRN (PAIN) #15 TAB Ref 0 Prov:Liz Henry 02/08/17 Disposition: 01 DISCHARGE HOME Condition: Stable Liz Henry Feb 08, 2017 18:19 Tete Gallegos MD Feb 10, 2017 15:53
--- NOTE | 2017-02-08 18:39 | RADRPT ---
EXAM DATE/TIME: 02/08/2017 18:15 [facility] COMPARISON: No previous studies available for comparison. INDICATIONS : Fall, patient takes coumadin RADIATION DOSE: 67.09 CTDIvol (mGy) MEDICAL HISTORY : Cardiovascular disease. AFib SURGICAL HISTORY : Cholecystectomy. ENCOUNTER: Initial ACUITY: 1 day PAIN SCALE: 0/10 LOCATION: Bilateral cranial TECHNIQUE: Multiple contiguous axial images were obtained of the head. Using automated exposure control and adj ustment of the mA and/or kV according to patient size, radiation dose was kept as low as reasonably a chievable to obtain optimal diagnostic quality images. DICOM format image data is available electro nically for review and comparison. FINDINGS: CEREBRUM: The ventricles and cortical sulci are mildly widened. There is mild low density in the cerebral whit e matter the most prominent in the frontal lobes. No evidence of midline shift, mass lesion, hemorrha ge or acute infarction. No extra-axial fluid collections are seen. POSTERIOR FOSSA: The cerebellum and brainstem are intact. The 4th ventricle is midline. The cerebellopontine angle i s unremarkable. EXTRACRANIAL: The visualized portion of the orbits is intact. SKULL: The calvaria is intact. No evidence of skull fracture. CONCLUSION: 1. No acute abnormality seen. 2. Mild atrophy. 3. Suspected small vessel ischemic change in the frontal white matter. Christiano Booth MD on February 08, 2017 at 18:35 Board Certified Radiologist. This report was verified electronically.
--- NOTE | 2017-02-08 18:52 | RADRPT ---
EXAM DATE/TIME: 02/08/2017 18:22 [facility] COMPARISON: No previous studies available for comparison. INDICATIONS : Fell, injury to left wrist. Wrist pain on lateral and medial wrist. MEDICAL HISTORY : Hypertension. Diabetes mellitus type II. SURGICAL HISTORY : None. ENCOUNTER: Initial ACUITY: 1 day PAIN SCORE: 7/10 LOCATION: Left upper extremity Wrist FINDINGS: There is a fracture of the distal radius with dorsal displacement and angulation of the distal fragme nt. There is also fracture at the base of the ulnar styloid. There is heterogeneity at the first meta carpal likely from underlying process such as fibrous dysplasia. CONCLUSION: Distal radial and ulnar fractures. Christiano Booth MD on February 08, 2017 at 18:49 Board Certified Radiologist. This report was verified electronically.
[2017-02-08] MEDS ORDERED: PERC5TAB12 PO ×2 (19:03→19:05)
[2017-02-08] MEDS ORDERED: oxyCODONE/ACETAMINOPHEN 5 MG/325 MG TAB PO ONE (19:15)
== END 2017-02-08 19:59 | disposition home or self-care (01) ==
LOC: PHEFT 17:55
DX: S52.502A Unspecified fracture of the lower end of left radius, initial encounter for closed fracture (principal); E11.9 Type 2 diabetes mellitus without complications; F41.8 Other specified anxiety disorders; E78.00 Pure hypercholesterolemia, unspecified; I48.91 Unspecified atrial fibrillation; I10 Essential (primary) hypertension; Z79.84 Long term (current) use of oral hypoglycemic drugs; W18.09XA Striking against other object with subsequent fall, initial encounter; Y93.H2 Activity, gardening and landscaping; Y92.046 Garden or yard of boarding-house as the place of occurrence of the external cause; Y99.9 Unspecified external cause status
CPT/HCPCS: 29125; 70450; 73110

== ENCOUNTER 2017-04-01 11:34 | Inpatient (IN) | payer MEDICARE ==
[~2017-04-01] VITALS: Ht 160 cm; Wt 82.5 kg
[2017-04-01] VITALS (17 sets, daily range): BP systolic 83–146; BP diastolic 53–77; PULSE 38–55; RESP 15–20; TEMP 97.9–98.7; O2SAT 94–99
[~2017-04-01 11:34] MED LIST changes: -CYAN100017 PO; -ENOX80P SQ; +PERC5TAB12 PO
[2017-04-01] MEDS ORDERED: SODIUM CHLORIDE 0.9% FLUSH 10 ML FLUSH IVF PRN (11:45)
--- NOTE | 2017-04-01 11:55 | PD ---
HPI Chief Complaint: Chest Pain Time Seen by Provider: 11:51 Travel History International Travel<30 days: No Contact w/Intl Traveler<30days: No Traveled to known affect area: No History of Present Illness HPI 76-year-old female with history of PAF, unstable angina, diabetes, A. fib, previously seen by Dr. Avalos and supposed to follow-up with Dr. Louis, presents to the ER today for 1 day history of substernal chest pains which she rates it a 7 out of 10 at its worse and she states is getting better currently. She denies any nausea, vomiting, abdominal pains, shortness of breath, or other symptoms. The chest discomfort feels the pressure. Modifying Factors: None Associated Signs & Symptoms: Chest discomfort Risk Factors: Cardiac history PFSH Past Medical History Hx Anticoagulant Therapy: Yes Arthritis: Yes Depression: Yes Heart Rhythm Problems: Yes (new afib) Cancer: No Cardiovascular Problems: Yes High Cholesterol: Yes Chest Pain: Yes Diabetes: Yes Diminished Hearing: No Endocrine: Yes Genitourinary: No Hypertension: Yes Musculoskeletal: Yes Neurologic: No Psychiatric: Yes Reproductive: No Respiratory: No Thyroid Disease: No Menopausal: Yes Past Surgical History Abdominal Surgery: Yes (cholestectomy) Cholecystectomy: Yes Other Surgery: Yes (VARICOSE VEIN REMOVAL BILATERAL LEGS) Social History Alcohol Use: No Tobacco Use: No Substance Use: No Allergies-Medications (Allergen,Severity, Reaction): Coded Allergies: No Known Allergies (Unverified , 04/01/17) Reported Meds & Prescriptions Reported Meds & Active Scripts Active Reported Lortab (Hydrocodone-Acetaminophen) 5-325 Mg Tab 1 Tab PO Q6H PRN Warfarin 5 Mg Tab 7.5 Mg PO DIRECTED Glimepiride 2 Mg Tab 2 Mg PO BIDAC Metoprolol Tartrate 25 Mg Tab 12.5 Mg PO BID Janumet Xr (Sitagliptin-Metformin ER) 100-1,000 Mg Tab 1 Tab PO DAILY D3 Maximum Strength (Cholecalciferol) 5,000 Unit Cap 5,000 Units PO DAILY Aspirin 325 Mg Tab 325 Mg PO DAILY Fosamax (Alendronate Sodium) 70 Mg Tab 35 Mg PO Q7D Atorvastatin (Atorvastatin Calcium) 40 Mg Tab 40 Mg PO HS Losartan (Losartan Potassium) 50 Mg Tab 50 Mg PO DAILY Celexa (Citalopram Hydrobromide) 20 Mg Tab 30 Mg PO DAILY Omeprazole 20 Mg Tab 20 Mg PO DAILY Actos (Pioglitazone HCl) 45 Mg Tab 45 Mg PO DAILY Review of Systems Except as stated in HPI: all other systems reviewed are Neg Physical Exam Narrative GENERAL: Well-developed elderly white female patient currently in mild distress. Awake and oriented 3. SKIN: Focused skin assessment warm/dry. HEAD: Atraumatic. Normocephalic. EYES: Pupils equal and round. No scleral icterus. No injection or drainage. ENT: No nasal bleeding or discharge. Mucous membranes pink and moist. NECK: Trachea midline. No JVD. Neck is supple. CARDIOVASCULAR: Slow and regular rhythm. No murmur appreciated. RESPIRATORY: No accessory muscle use. Clear to auscultation. Breath sounds equal bilaterally. GASTROINTESTINAL: Abdomen soft, non-tender, nondistended. Hepatic and splenic margins not palpable. MUSCULOSKELETAL: No obvious deformities. No clubbing. No cyanosis. No edema. NEUROLOGICAL: Awake and alert. No obvious cranial nerve deficits. Motor grossly within normal limits. Normal speech. PSYCHIATRIC: Appropriate mood and affect; insight and judgment normal. Data Data Last Documented VS Vital Signs Date Time Temp Pulse Resp B/P (MAP) Pulse Ox O2 Delivery O2 Flow Rate FiO2 04/01/17 13:15 40 18 93/61 (72) Room Air 04/01/17 12:56 98 04/01/17 12:39 2.00 04/01/17 11:50 97.9 Orders Orders Electrocardiogram (04/01/17 11:40) Ckmb (Isoenzyme) Profile (04/01/17 11:40) Complete Blood Count With Diff (04/01/17 11:40) Comprehensive Metabolic Panel (04/01/17 11:40) Magnesium (Mg) (04/01/17 11:40) Prothrombin Time / Inr (Pt) (04/01/17 11:40) Act Partial Throm Time (Ptt) (04/01/17 11:40) Troponin I (04/01/17 11:40) Chest, Single Ap (04/01/17 11:40) Ecg Monitoring (04/01/17 11:40) Bilateral Bp Monitoring (04/01/17 11:40) Iv Access Insert/Monitor (04/01/17 11:40) Oximetry (04/01/17 11:40) Oxygen Administration (04/01/17 11:40) Sodium Chloride 0.9% Flush (Ns Flush) (04/01/17 11:45) Atropine Inj (Atropine Inj) (04/01/17 12:15) Atropine Inj (Atropine Inj) (04/01/17 12:16) Admit Order (Ed Use Only) (04/01/17 13:14) Labs Laboratory Tests Test 04/01/17 11:45 White Blood Count 6.1 TH/MM3 Red Blood Count 4.18 MIL/MM3 Hemoglobin 13.5 GM/DL Hematocrit 39.5 % Mean Corpuscular Volume 94.5 FL Mean Corpuscular Hemoglobin 32.3 PG Mean Corpuscular Hemoglobin Concent 34.2 % Red Cell Distribution Width 13.2 % Platelet Count 155 TH/MM3 Mean Platelet Volume 8.4 FL Neutrophils (%) (Auto) 54.1 % Lymphocytes (%) (Auto) 35.3 % Monocytes (%) (Auto) 8.0 % Eosinophils (%) (Auto) 1.4 % Basophils (%) (Auto) 1.2 % Neutrophils # (Auto) 3.2 TH/MM3 Lymphocytes # (Auto) 2.2 TH/MM3 Monocytes # (Auto) 0.5 TH/MM3 Eosinophils # (Auto) 0.1 TH/MM3 Basophils # (Auto) 0.1 TH/MM3 CBC Comment DIFF FINAL Differential Comment Prothrombin Time 40.1 SEC Prothromb Time International Ratio 3.4 RATIO Activated Partial Thromboplast Time 34.6 SEC Blood Urea Nitrogen 16 MG/DL Creatinine 0.68 MG/DL Random Glucose 142 MG/DL Total Protein 7.1 GM/DL Albumin 3.6 GM/DL Calcium Level 8.7 MG/DL Magnesium Level 1.4 MG/DL Alkaline Phosphatase 41 U/L Aspartate Amino Transf (AST/SGOT) 18 U/L Alanine Aminotransferase (ALT/SGPT) 25 U/L Total Bilirubin 0.8 MG/DL Sodium Level 137 MEQ/L Potassium Level 3.7 MEQ/L Chloride Level 101 MEQ/L Carbon Dioxide Level 30.6 MEQ/L Anion Gap 5 MEQ/L Estimat Glomerular Filtration Rate 84 ML/MIN Total Creatine Kinase 78 U/L Troponin I LESS THAN 0.02 NG/ML MDM Medical Decision Making Medical Screen Exam Complete: Yes Emergency Medical Condition: Yes Medical Record Reviewed: Yes Interpretation(s) EKG shows sinus bradycardia rate of 47 bpm. No signs of acute ST-T elevations or depression. Laboratory Tests Test 04/01/17 11:45 Prothrombin Time 40.1 SEC (9.8-11.6) Activated Partial Thromboplast Time 34.6 SEC (24.3-30.1) Random Glucose 142 MG/DL (74-106) Magnesium Level 1.4 MG/DL (1.5-2.5) Alkaline Phosphatase 41 U/L (45-117) Estimat Glomerular Filtration Rate 84 ML/MIN (>89) Troponin I LESS THAN 0.02 NG/ML Differential Diagnosis Chest pains: dysrhythmias versus ACS versus metabolic issues Narrative Course Chest x-ray did not show any signs of acute processes. EKG shows sinus bradycardia rate of 47 bpm. Patient had been given atropine for bradycardia in the ER and was fairly asymptomatic initially. Lab work returned and did not show any signs of heart enzyme elevations or significant metabolic issues. Case was discussed with Dr. Chinchilla for admission. Case was then discussed with Dr. Louis who is patient's nuclear engineer and he states that the patient can be medically admitted. Last to see her later. He states that the patient should have all her beta rica withheld. After I discussed the case with admitting doctor and cardiology, it was noted that the patient is having bradycardia and started having chest discomfort and her blood pressures are on the low side. At this point, I have called admitting doctor back and he would like me to transfer the patient to the [facility] CIC unit. He states he will discuss the case with cardiology. Diagnosis Primary Impression: Chest pain Additional Impression: Symptomatic bradycardia Admitting Information Admitting Physician Requests: Evelyn Hawley MD Apr 01, 2017 11:55
[2017-04-01 11:57] LABS: AUTOMATED NEUTROPHIL # 3.2 TH/MM3 (1.8-7.7); BASOPHIL # 0.1 TH/MM3 (0-0.2); BASOPHIL % 1.2 % (0.0-2.0); EOSINOPHIL # 0.1 TH/MM3 (0-0.4); EOSINOPHIL % 1.4 % (0.0-4.0); HEMATOCRIT 39.5 % (35.0-46.0); HEMO FLAGS DIFF FINAL; LYMPH % 35.3 % (9.0-44.0); LYMPHOCYTE # 2.2 TH/MM3 (1.0-4.8); MEAN CELL VOLUME 94.5 FL (80.0-100.0); MEAN CORPUSCULAR HEMOGLOBIN 32.3 PG (27.0-34.0); MEAN CORPUSCULAR HGB CONC 34.2 % (32.0-36.0); NEUT % 54.1 % (16.0-70.0); PLATELET COUNT 155 TH/MM3 (150-450); RED BLOOD COUNT 4.18 MIL/MM3 (4.00-5.30); RED CELL DISTRIBUTION WIDTH 13.2 % (11.6-17.2); WHITE BLOOD COUNT 6.1 TH/MM3 (4.0-11.0)
[2017-04-01 12:06] LABS: CHLORIDE 101 MEQ/L (98-107); POTASSIUM 3.7 MEQ/L (3.5-5.1); SODIUM (NA) 137 MEQ/L (136-145)
[2017-04-01 12:10] LABS: ANION GAP 5 MEQ/L (5-15); BICARBONATE 30.6 MEQ/L (21.0-32.0); MAGNESIUM 1.4 MG/DL (1.5-2.5)
[2017-04-01] MEDS ORDERED: METO25TA3 PO (12:10)
[2017-04-01] MEDS ORDERED: SITA100T PO (12:10)
[2017-04-01] MEDS ORDERED: HYDR-3533 PO (12:10)
[2017-04-01] MEDS ORDERED: GLIM2TAB PO (12:10)
[2017-04-01] MEDS ORDERED: WARF-23 PO (12:10)
[2017-04-01 12:12] LABS: APTT (PATIENT) 34.6 SEC (24.3-30.1); BLOOD UREA NITROGEN 16 MG/DL (7-18); INTERNATIONAL NORMALIZED RATIO 3.4 RATIO; PROTHROMBIN TIME - PATIENT 40.1 SEC (9.8-11.6)
[2017-04-01 12:13] LABS: ALT (GPT) 25 U/L (10-53); GLOMERULAR FILTRATION RATE 84 ML/MIN (>89)
[2017-04-01 12:14] LABS: TOTAL BILIRUBIN ADULT 0.8 MG/DL (0.2-1.0)
[2017-04-01] MEDS ORDERED: ATROPINE SULFATE 1 MG/ML VIAL IV PUSH ONE (12:15)
[2017-04-01 12:16] LABS: AST (GOT) 18 U/L (15-37); CREATINE KINASE 78 U/L (26-192)
[2017-04-01] MEDS ORDERED: ATROPINE SULFATE 1 MG/10 ML SYRINGE ONE (12:16)
[2017-04-01 12:19] LABS: ALKALINE PHOSPHATASE 41 U/L (45-117)
--- NOTE | 2017-04-01 12:51 | RADRPT ---
EXAM DATE/TIME: 04/01/2017 12:36 [facility] COMPARISON: CHEST SINGLE AP, October 04, 2016, 6:49. INDICATIONS : Substernal chest pain. MEDICAL HISTORY : Hypercholesterolemia. Hypertension Arthritis. Diabetic. A-fib SURGICAL HISTORY : Cholecystectomy. ENCOUNTER: Initial ACUITY: 1 day PAIN SCORE: 7/10 LOCATION: chest FINDINGS: A single view of the chest demonstrates the lungs to be symmetrically aerated without evidence of mas s, infiltrate or effusion. Moderate cardiomegaly. No pulmonary vascular engorgement observed. Osseous structures are intact. CONCLUSION: Moderate cardiomegaly. Clear lungs. Maurizio Jeter Jr., MD on April 01, 2017 at 12:48 Board Certified Radiologist. This report was verified electronically.
[2017-04-01] MEDS ORDERED: GLUCAGON 1 MG/ML VIAL OTHER PRN (14:30)
[2017-04-01] MEDS ORDERED: DEXTROSE 50% IN WATER 50 ML VIAL(D50) IV PRN (14:30)
[2017-04-01] MEDS ORDERED: PILL SPLITTER OTHER PRN (15:15)
[2017-04-01] MEDS: INSULIN ASPART SUPPLEMENTAL SCALE SQ SCH ×2 (16:00→21:00)
[2017-04-01] MEDS: GLIMEPIRIDE 2 MG TAB PO SCH (16:00)
[2017-04-01] MEDS ORDERED: metFORMIN HCL 500 MG TAB PO SCH (18:00)
--- NOTE | 2017-04-01 19:12 | MB ---
cc: RIVERA VALENCIA M.D. DATE OF CONSULTATION: 04/01/2017 REASON FOR CONSULTATION: Severe bradycardia and chest pain. HISTORY OF PRESENT ILLNESS: This is a 76-year-old female who is well-known to me. She had a past medical history of paroxysmal atrial fibrillation on Coumadin. The patient presented to [facility] emergency room with a complaint of recurrent chest pain over the past couple of weeks, associated with severe fatigue and tiredness, and exertional shortness of breath. In the emergency room she was found to have bradycardia with a heart rate in the 40s without acute ST changes. The troponin came back at 0.02. PT/INR is 3.4. The patient was transferred to [facility] in the main hospital for possible need of pacemaker implantation. Currently the patient is more comfortable. She is chest pain free. She denies presyncope and syncope. 12-lead EKG showed sinus bradycardia without acute ST changes. ALLERGIES Unknown. SOCIAL HISTORY Denies smoking and alcohol abuse. FAMILY HISTORY Noncontributory. REVIEW OF SYSTEMS HEENT: No complaints of lightheadedness or dizziness. Cardiovascular: History of paroxysmal atrial fibrillation on Coumadin. Pulmonary: No history of asthma or COPD. Gastrointestinal: No history of GI bleed. Genitourinary: No history of renal failure. Endocrine: Positive for type 2 diabetes mellitus. No hyperlipidemia. The remainder of review of systems is within normal limits. PHYSICAL EXAMINATION: Her physical examination showed blood pressure of 93/60 with a heart rate of 40, respiratory rate of 12. The patient is afebrile. NECK: Supple with no jugular venous distention. CHEST: Clear to auscultation and percussion. HEART: S1 normal intensity, S2 single. Regular rate and rhythm. No S3 or S4 appreciated. ABDOMEN: Benign. EXTREMITIES: No edema. IMPRESSION 1. Chest pain of uncertain etiology. 2. Severe sinus bradycardia. 3. Borderline hypotension. 4. History of paroxysmal atrial fibrillation on Coumadin. 5. Hypertension, hyperlipidemia. 6. Type 2 diabetes mellitus. RECOMMENDATIONS The patient has been taking metoprolol at home, that is being held at this point. Will monitor the heart rate tonight. The patient seems to be dehyrated, so will give her a liter bolus of fluid. The patient could have a probable acute coronary syndrome. Will rule out myocardial infarction. Will continue to follow. Will provide further recommendations accordingly. MD CAROLYNN Mcmahon/ZAYRA /6:22 PM /6:59 PM
[2017-04-01] MEDS: ATORVASTATIN 40 MG TAB PO SCH (21:56)
[2017-04-02] VITALS (7 sets, daily range): BP systolic 117–156; BP diastolic 64–81; PULSE 42–56; RESP 12–16; TEMP 98–98.8; O2SAT 95–98
[2017-04-02] MEDS: INSULIN ASPART SUPPLEMENTAL SCALE SQ SCH ×4 (06:18→21:00)
[2017-04-02 06:29] LABS: HDL CHOLESTEROL 35.6 MG/DL (40.0-60.0)
[2017-04-02] MEDS: GLIMEPIRIDE 2 MG TAB PO SCH ×2 (08:00→16:00)
[2017-04-02] MEDS: metFORMIN HCL 500 MG TAB PO SCH (08:41)
[2017-04-02] MEDS: CITALOPRAM HYDROBROMIDE 20 MG TAB PO SCH (08:42)
[2017-04-02] MEDS: ASPIRIN 325 MG TAB PO SCH (08:43)
[2017-04-02] MEDS: LOSARTAN 50 MG TAB PO SCH (08:43)
[2017-04-02] MEDS: PANTOPRAZOLE SOD 20 MG DELAYED RELEASE TAB PO SCH (08:43)
[2017-04-02] MEDS ORDERED: NON-FORMULARY DRUG (Sitagliptin-Metformin ER (Janumet Xr) 1 TAB) PO SCH (09:00)
--- NOTE | 2017-04-02 09:42 | HHI.PR ---
Subjective Remarks pt had diarrhea this morning. denies chest pain Objective Vital Signs Date Time Temp Pulse Resp B/P (MAP) Pulse Ox O2 Delivery O2 Flow Rate FiO2 04/02/17 07:00 44 04/02/17 07:00 98.8 43 16 140/79 (99) 96 04/02/17 07:00 96 Nasal Cannula 2.00 04/02/17 03:37 95 Nasal Cannula 2.00 04/02/17 03:37 98.0 44 15 145/81 (102) 95 04/02/17 03:37 43 04/01/17 23:45 98.2 43 15 116/65 (82) 95 04/01/17 23:45 95 Nasal Cannula 2.00 04/01/17 23:45 47 04/01/17 22:07 94 Nasal Cannula 2.00 04/01/17 19:30 98.6 48 17 115/64 (81) 98 04/01/17 19:30 98 Nasal Cannula 2.00 04/01/17 19:00 48 04/01/17 18:04 98.7 45 16 146/77 (100) 96 04/01/17 18:04 96 Nasal Cannula 2.00 04/01/17 18:04 98.7 45 16 146/77 (100) 96 04/01/17 18:04 45 04/01/17 17:25 42 20 102/62 (75) 98 04/01/17 15:43 43 16 102/62 (75) 99 Nasal Cannula 2.00 04/01/17 14:22 41 16 99/59 (72) Nasal Cannula 2.00 04/01/17 13:34 38 100/61 (74) 04/01/17 13:15 40 18 93/61 (72) Room Air 04/01/17 12:56 44 18 105/63 (77) 98 Room Air 04/01/17 12:39 48 20 105/53 (70) 96 Nasal Cannula 2.00 04/01/17 12:30 55 16 95/61 (72) 97 Nasal Cannula 2.00 04/01/17 12:24 43 16 99/63 (75) 97 Nasal Cannula 2.00 04/01/17 12:17 44 16 83/61 (68) 98 Nasal Cannula 2.00 04/01/17 11:56 98/63 (75) 93/61 (72) 04/01/17 11:55 (75) 04/01/17 11:50 Room Air 04/01/17 11:50 95 Room Air 04/01/17 11:50 97.9 47 16 100/62 (75) 95 Room Air 04/01/17 11:50 98 Nasal Cannula 2.00 I/O 04/01/17 04/01/17 04/01/17 04/02/17 04/02/17 04/02/17 06:59 14:59 22:59 06:59 14:59 22:59 Intake Total 480 ml Output Total 800 ml Balance -320 ml Intake Oral 480 ml Output Urine Total 800 ml # Voids 1 # Bowel Movements 2 VSS, HR 50 bpm chest: CTA Heart: S1,S2,RRR ABD: ST, NT Ext: no edema Result Diagram: 04/01/17 1145 04/01/17 1145 Assessment and Plan Assessment and Plan consult Dr Cui for dual pacemaker implant. continue to hold Coumadin. I will follow Dinora Louis MD Apr 02, 2017 09:42
--- NOTE | 2017-04-02 09:58 | HHI.HP ---
HPI Service [facility] Primary Care Physician Non-Staff Admission Diagnosis chest pains/bradycardia Diagnoses: Chief Complaint: Chest pain Travel History International Travel<30 Days: No Contact w/Intl Traveler <30 Da: No Traveled to Known Affected Are: No History of Present Illness This a pleasant 76-year-old white female with history of paroxysmal A. fib, type 2 diabetes, hypertension, hyperlipidemia. Patient was recently diagnosed with a atrial fibrillation, outside plant technician is . Patient presented to the emergency room with complaint of sternum chest pain that started yesterday, indicates that it was a 7 out of 10, no radiation, associated with nausea and feeling of weakness. She did not take any medications at home, pain went away by the time she came to the emergency room. Nothing made the pain better or worse. Denies any recent fever, no chills. She is on Coumadin as well as metoprolol. She was evaluated in the emergency room, patient was noted bradycardic, heart rate 47. Patient was given atropine. Initial cardiac enzymes were negative. Her outside plant technician was consulted and came to see the patient and requested transfer to the main hospital. She was also noted hypotensive therefore request was made to admit to intensive care for closer monitoring. Patient has been evaluated by Dr Louis, he has requested consultation with Dr. Cui for possible pacemaker insertion. She has received vitamin K to reverse Coumadin. Patient is complaining of loose stools , no watery diarrhea. Indicates has had approximately 4 episodes since last night. Denies any abdominal pain, no nausea, no vomiting. No recent antibiotic use, no recent sick contacts. A stool for C. difficile has been ordered and is currently pending. Patient denies any chest pain at this time, no shortness of breath. Patient is admitted for further evaluation and treatment. Review of Systems Constitutional: DENIES: Diaphoretic episodes, Fatigue, Fever, Weight gain, Weight loss, Chills, Dizziness, Change in appetite, Night Sweats Endocrine: DENIES: Abnorml menstrual pattern, Heat/cold intolerance, Polydipsia , Polyuria, Polyphagia Eyes: DENIES: Blurred vision, Diplopia, Eye inflammation, Eye pain, Vision loss , Photosensitivity, Double Vision Ears, nose, mouth, throat: DENIES: Tinnitus, Hearing loss, Vertigo, Nasal discharge, Oral lesions, Throat pain, Hoarseness, Ear Pain, Running Nose, Epistaxis, Sinus Pain, Toothache, Odynophagia Respiratory: DENIES: Apneas, Cough, Snoring, Wheezing, Hemoptysis, Sputum production, Shortness of breath Cardiovascular: COMPLAINS OF: Chest pain, DENIES: Palpitations, Syncope, Dyspnea on Exertion, PND, Lower Extremity Edema, Orthopnea, Claudication Gastrointestinal: COMPLAINS OF: Diarrhea, Nausea, DENIES: Abdominal pain, Black stools, Bloody stools, Constipation, Vomiting, Difficulty Swallowing, Anorexia Genitourinary: DENIES: Abnormal vaginal bleeding, Dysmenorrhea, Dyspareunia, Sexual dysfunction, Urinary frequency, Urinary incontinence, Urgency, Hematuria , Dysuria, Nocturia, Vaginal discharge Musculoskeletal: DENIES: Joint pain, Muscle aches, Stiffness, Joint Swelling, Back pain, Neck pain Integumentary: DENIES: Abnormal pigmentation, Pruritus, Rash, Nail changes, Breast masses, Breast skin changes, Nipple discharge Hematologic/lymphatic: DENIES: Bruising, Lymphadenopathy Immunologic/allergic: DENIES: Eczema, Urticaria Neurologic: DENIES: Abnormal gait, Headache, Localized weakness, Paresthesias, Seizures, Speech Problems, Tremor, Poor Balance Psychiatric: DENIES: Anxiety, Confusion, Mood changes, Depression, Hallucinations, Agitation, Suicidal Ideation, Homicidal Ideation, Delusions Past Family Social History Past Medical History Diagnosed with Oneal torres 3 months ago Hypertension Hyperlipidemia Type 2 diabetes Varicose veins Past Surgical History Cataract removal Cholecystectomy Varicose vein surgery Reported Medications Reported Meds & Active Scripts Active Reported Lortab (Hydrocodone-Acetaminophen) 5-325 Mg Tab 1 Tab PO Q6H PRN Warfarin 5 Mg Tab 7.5 Mg PO DIRECTED Glimepiride 2 Mg Tab 2 Mg PO BIDAC Metoprolol Tartrate 25 Mg Tab 12.5 Mg PO BID Janumet Xr (Sitagliptin-Metformin ER) 100-1,000 Mg Tab 1 Tab PO DAILY D3 Maximum Strength (Cholecalciferol) 5,000 Unit Cap 5,000 Units PO DAILY Aspirin 325 Mg Tab 325 Mg PO DAILY Fosamax (Alendronate Sodium) 70 Mg Tab 35 Mg PO Q7D Atorvastatin (Atorvastatin Calcium) 40 Mg Tab 40 Mg PO HS Losartan (Losartan Potassium) 50 Mg Tab 50 Mg PO DAILY Celexa (Citalopram Hydrobromide) 20 Mg Tab 30 Mg PO DAILY Omeprazole 20 Mg Tab 20 Mg PO DAILY Actos (Pioglitazone HCl) 45 Mg Tab 45 Mg PO DAILY Allergies: Coded Allergies: No Known Allergies (Unverified , 04/01/17) Active Ordered Medications Inpatient Medications Acetaminophen/ Hydrocodone Bitart ([place] 5-325 Mg) 1 tab Q6H PRN PO PAIN SCALE 1 TO 10; Start 04/01/17 at 14:30 Aspirin (Aspirin) 325 mg DAILY PO Last administered on 04/02/17 08:43; Start 04/02/17 at 09:00 Atorvastatin Calcium (Lipitor) 40 mg HS PO Last administered on 04/01/17 21:56 ; Start 04/01/17 at 21:00 Atropine Sulfate (Atropine Inj) 0.5 mg ONCE ONCE IV PUSH ; Start 04/01/17 at 12 :15; Stop 04/01/17 at 12:16; Status DC Citalopram Hydrobromide (CeleXA) 30 mg DAILY PO Last administered on 04/02/17 08:42; Start 04/02/17 at 09:00 Dextrose (D50w (Vial) Inj) 50 ml UNSCH PRN IV HYPOGLYCEMIA-SEE COMMENTS; Start 04/01/17 at 14:30 Glimepiride (Amaryl) 2 mg BIDAC PO Last administered on 04/02/17 08:00; Start 04/01/17 at 16:00 Glucagon (Glucagon Inj) 1 mg UNSCH PRN OTHER HYPOGLYCEMIA-SEE COMMENTS; Start 04/01/17 at 14:30 Insulin Aspart (NovoLOG SUPPLEMENTAL SCALE) 1 ACHS SLIDING SCALE SQ ; Start at 16:00 Losartan Potassium (Cozaar) 50 mg DAILY PO Last administered on 04/02/17 08:43 ; Start 04/02/17 at 09:00 Metformin HCl (Glucophage) 1,000 mg DAILY PO Last administered on 04/02/17 08: 41; Start 04/02/17 at 09:00 Miscellaneous (Pill Splitter) 1 ea UNSCH PRN OTHER SEE LABEL COMMENTS; Start at 15:15 Pantoprazole Sodium (Protonix) 20 mg DAILY PO Last administered on 04/02/17 08 :43; Start 04/02/17 at 09:00 Phytonadione (Vitamin K Inj) 10 mg NOW ONCE IV ; Start 04/02/17 at 10:00; Stop 04/02/17 at 10:01 Sitagliptin Phosphate (Januvia) 100 mg DAILY PO Last administered on 04/02/17t 08:39; Start 04/02/17 at 09:00 Sodium Chloride (NS Flush) 2 ml UNSCH PRN IVF FLUSH AFTER USING IV ACCESS; Start 04/01/17 at 11:45 Family History Reviewed noncontributory Social History Patient is , lives with . Has grown children. No alcohol, no substance abuse, tobacco abuse. Physical Exam Vital Signs Vital Signs Date Time Temp Pulse Resp B/P (MAP) Pulse Ox O2 Delivery O2 Flow Rate FiO2 04/02/17 07:00 44 04/02/17 07:00 98.8 43 16 140/79 (99) 96 04/02/17 07:00 96 Nasal Cannula 2.00 04/02/17 03:37 95 Nasal Cannula 2.00 04/02/17 03:37 98.0 44 15 145/81 (102) 95 04/02/17 03:37 43 04/01/17 23:45 98.2 43 15 116/65 (82) 95 04/01/17 23:45 95 Nasal Cannula 2.00 04/01/17 23:45 47 04/01/17 22:07 94 Nasal Cannula 2.00 04/01/17 19:30 98.6 48 17 115/64 (81) 98 04/01/17 19:30 98 Nasal Cannula 2.00 04/01/17 19:00 48 04/01/17 18:04 98.7 45 16 146/77 (100) 96 04/01/17 18:04 96 Nasal Cannula 2.00 04/01/17 18:04 98.7 45 16 146/77 (100) 96 04/01/17 18:04 45 04/01/17 17:25 42 20 102/62 (75) 98 04/01/17 15:43 43 16 102/62 (75) 99 Nasal Cannula 2.00 04/01/17 14:22 41 16 99/59 (72) Nasal Cannula 2.00 04/01/17 13:34 38 100/61 (74) 04/01/17 13:15 40 18 93/61 (72) Room Air 04/01/17 12:56 44 18 105/63 (77) 98 Room Air 04/01/17 12:39 48 20 105/53 (70) 96 Nasal Cannula 2.00 04/01/17 12:30 55 16 95/61 (72) 97 Nasal Cannula 2.00 04/01/17 12:24 43 16 99/63 (75) 97 Nasal Cannula 2.00 04/01/17 12:17 44 16 83/61 (68) 98 Nasal Cannula 2.00 04/01/17 11:56 98/63 (75) 93/61 (72) 04/01/17 11:55 (75) 04/01/17 11:50 Room Air 04/01/17 11:50 95 Room Air 04/01/17 11:50 97.9 47 16 100/62 (75) 95 Room Air 04/01/17 11:50 98 Nasal Cannula 2.00 Physical Exam GENERAL: This is a well-nourished, well-developed patient, in no apparent distress. SKIN: No rashes, ecchymoses or lesions. Cool and dry. HEAD: Atraumatic. Normocephalic. No temporal or scalp tenderness. EYES: Pupils equal round and reactive. Extraocular motions intact. No scleral icterus. No injection or drainage. ENT: Nose without bleeding, purulent drainage or septal hematoma. Throat without erythema, tonsillar hypertrophy or exudate. Uvula midline. Airway patent. NECK: Trachea midline. No JVD or lymphadenopathy. Supple, nontender, no meningeal signs. CARDIOVASCULAR: S1 and S2, sinus bradycardia. No murmurs, no rubs, no gallops. RESPIRATORY: Clear to auscultation. Breath sounds equal bilaterally. No wheezes , rales, or rhonchi. GASTROINTESTINAL: Abdomen soft, non-tender, nondistended. No hepato-splenomegaly , or palpable masses. No guarding. MUSCULOSKELETAL: Extremities without clubbing, cyanosis, or edema. No joint tenderness, effusion, or edema noted. No calf tenderness. Negative Homans sign bilaterally. NEUROLOGICAL: Awake and alert. Cranial nerves II through XII intact. Motor and sensory grossly within normal limits. Five out of 5 muscle strength in all muscle groups. Normal speech. Laboratory Laboratory Tests Test 04/01/17 11:45 04/01/17 19:04 04/02/17 05:43 White Blood Count 6.1 Red Blood Count 4.18 Hemoglobin 13.5 Hematocrit 39.5 Mean Corpuscular Volume 94.5 Mean Corpuscular Hemoglobin 32.3 Mean Corpuscular Hemoglobin Concent 34.2 Red Cell Distribution Width 13.2 Platelet Count 155 Mean Platelet Volume 8.4 Neutrophils (%) (Auto) 54.1 Lymphocytes (%) (Auto) 35.3 Monocytes (%) (Auto) 8.0 Eosinophils (%) (Auto) 1.4 Basophils (%) (Auto) 1.2 Neutrophils # (Auto) 3.2 Lymphocytes # (Auto) 2.2 Monocytes # (Auto) 0.5 Eosinophils # (Auto) 0.1 Basophils # (Auto) 0.1 CBC Comment DIFF FINAL Differential Comment Prothrombin Time 40.1 Prothromb Time International Ratio 3.4 Activated Partial Thromboplast Time 34.6 Blood Urea Nitrogen 16 Creatinine 0.68 Random Glucose 142 Total Protein 7.1 Albumin 3.6 Calcium Level 8.7 Magnesium Level 1.4 Alkaline Phosphatase 41 Aspartate Amino Transf (AST/SGOT) 18 Alanine Aminotransferase (ALT/SGPT) 25 Total Bilirubin 0.8 Sodium Level 137 Potassium Level 3.7 Chloride Level 101 Carbon Dioxide Level 30.6 Anion Gap 5 Estimat Glomerular Filtration Rate 84 Total Creatine Kinase 78 Troponin I LESS THAN 0.02 0.05 0.03 Triglycerides Level 144 Cholesterol Level 130 LDL Cholesterol 66 HDL Cholesterol 35.6 Cholesterol/HDL Ratio 3.65 Result Diagram: 04/01/17 1145 04/01/17 1145 Imaging Last Impressions Chest X-Ray 04/01/17 1140 Signed Impressions: Service Date/Time: Saturday, April 01, 2017 12:36 - CONCLUSION: Moderate cardiomegaly. Clear lungs. MD Natacha Childs Jr. VTE Risk Assessment Caprini VTE Risk Assessment: No/Low Risk (score <= 1) VTE Pharm Contraindication: going for procedure Caprini Risk Assessment Model Point Value = 1 Point Value = 2 Point Value = 3 Point Value = 5 Age 41-60 Minor surgery BMI > 25 kg/m2 Swollen legs Varicose veins or History of unexplained or recurrent spontaneous Oral contraceptives or hormone replacement Sepsis (< 1 month) Serious lung disease, including pneumonia (< 1 month) Abnormal pulmonary function Acute myocardial infarction Congestive heart failure (< 1 month) History of inflammatory bowel disease Medical patient at bed rest Age 61-74 Arthroscopic surgery Major open surgery (> 45 min) Laparoscopic surgery (> 45 min) Malignancy Confined to bed (> 72 hours) Immobilizing plaster cast Central venous access Age >= 75 History of VTE Family history of VTE Factor V Leiden Prothrombin [id number] Lupus anticoagulant Anticardiolipin antibodies Elevated serum homocysteine Heparin-induced thrombocytopenia Other congenital or acquired thrombophilia Stroke (< 1 month) Elective arthroplasty Hip, pelvis, or leg fracture Acute spinal cord injury (< 1 month) Prophylaxis Regimen Total Risk Factor Score Risk Level Prophylaxis Regimen 0-1 Low Early ambulation 2 Moderate Order ONE of the following: *Sequential Compression Device (SCD) *Heparin 5000 units SQ BID 3-4 Higher Order ONE of the following medications: *Heparin 5000 units SQ TID *Enoxaparin/Lovenox 40 mg SQ daily (WT < 150 kg, CrCl > 30 mL/min) *Enoxaparin/Lovenox 30 mg SQ daily (WT < 150 kg, CrCl > 10-29 mL/min) *Enoxaparin/Lovenox 30 mg SQ BID (WT < 150 kg, CrCl > 30 mL/min) AND/OR *Sequential Compression Device (SCD) 5 or more Highest Order ONE of the following medications: *Heparin 5000 units SQ TID (Preferred with Epidurals) *Enoxaparin/Lovenox 40 mg SQ daily (WT < 150 kg, CrCl > 30 mL/min) *Enoxaparin/Lovenox 30 mg SQ daily (WT < 150 kg, CrCl > 10-29 mL/min) *Enoxaparin/Lovenox 30 mg SQ BID (WT < 150 kg, CrCl > 30 mL/min) AND *Sequential Compression Device (SCD) Assessment and Plan Problem List: (1) Symptomatic bradycardia ICD Codes: R00.1 - Bradycardia, unspecified Status: Acute (2) Chest pain ICD Codes: R07.9 - Chest pain, unspecified Status: Acute (3) Diabetes mellitus ICD Codes: E11.9 - Type 2 diabetes mellitus without complications Status: Acute (4) Diarrhea ICD Codes: R19.7 - Diarrhea, unspecified Status: Acute (5) Atrial fibrillation ICD Codes: I48.91 - Unspecified atrial fibrillation Status: Chronic Assessment and Plan Admit to Dr. Chinchilla 76-year-old white female presented to the emergency room with complaint of chest pain, was noted bradycardic received atropine. Recently diagnosed with A. fib Symptomatically bradycardia, hypotension Atrial fibrillation, slow ventricular rate -Continue serial troponin -Appreciate cardiology input, Dr. Cui has been consulted for possible pacemaker insertion. -Vitamin K has been given to reverse the effects of Coumadin -We will keep patient nothing by mouth at this time -Continue aspirin Reported diarrhea, has had 4 stools -Check stools for C. difficile Type 2 diabetes -Accu-Cheks before meals and at bedtime with insulin therapy History hypertension, patient initially had low blood pressure now trending up -Continue home medication Hyperlipidemia -Continue home medication Hypomagnesemia -Magnesium has been replaced Home medications reviewed, initiated as indicated SCDs for DVT prophylaxis Plan of care has been discussed with the patient and her family, RN and attending. Further management of the patient will be dependent on the hospital course This patient was seen by myself and Dr. Chinchilla, this H&P is written on his behalf Physician Certification 2 Midnight Certification Type: Admission for Inpatient Services Order for Inpatient Services The services are ordered in accordance with Medicare regulations or non- Medicare payer requirements, as applicable. In the case of services not specified as inpatient-only, they are appropriately provided as inpatient services in accordance with the 2-midnight benchmark. Estimated LOS (days): 2 2 days is the estimated time the patient will need to remain in the hospital, assuming treatment plan goals are met and no additional complications. Post-Hospital Plan: Home Problem Qualifiers (1) Chest pain: (2) Diabetes mellitus: Qualified Codes: E11.8 - Type 2 diabetes mellitus with unspecified complications (3) Atrial fibrillation: Qualified Codes: I48.91 - Unspecified atrial fibrillation Jossy Day Apr 02, 2017 09:57
[2017-04-02] MEDS ORDERED: PHYTONADIONE 10 MG/ML VIAL IV ONE (10:00)
--- NOTE | 2017-04-02 20:06 | EKG ---
Date Performed: 04/01/2017 Time Performed: 11:45:21 PTAGE: 76 years EKG: SINUS BRADYCARDIA MARKED LEFT AXIS DEVIATION RIGHT BUNDLE BRANCH BLOCK LEFT VENTRICULAR HYP ERTROPHY AND ST-T CHANGE ABNORMAL ECG PREVIOUS TRACING : 10/04/2016 06.31 Compared to the previous tracing a fib no longer present DOCTOR: Titi Cui Interpretating Date/Time 04/02/2017 20:04:59
[2017-04-02] MEDS: ATORVASTATIN 40 MG TAB PO SCH (21:32)
[2017-04-03] VITALS (8 sets, daily range): BP systolic 109–134; BP diastolic 58–83; PULSE 44–72; RESP 12–18; TEMP 97.5–98.8; O2SAT 93–98
[2017-04-03 06:16] LABS: HEMATOCRIT 37.9 % (35.0-46.0); MEAN CELL VOLUME 96.4 FL (80.0-100.0); MEAN CORPUSCULAR HEMOGLOBIN 32.9 PG (27.0-34.0); MEAN CORPUSCULAR HGB CONC 34.1 % (32.0-36.0); PLATELET COUNT 131 TH/MM3 (150-450); RED BLOOD COUNT 3.93 MIL/MM3 (4.00-5.30); RED CELL DISTRIBUTION WIDTH 13.8 % (11.6-17.2); REVIEW FLAG FINAL; WHITE BLOOD COUNT 6.3 TH/MM3 (4.0-11.0)
[2017-04-03 06:27] LABS: INTERNATIONAL NORMALIZED RATIO 1.2 RATIO; PROTHROMBIN TIME - PATIENT 12.9 SEC (9.8-11.6)
[2017-04-03] MEDS: INSULIN ASPART SUPPLEMENTAL SCALE SQ SCH ×4 (06:40→21:13)
[2017-04-03 06:43] LABS: BICARBONATE 30.2 MEQ/L (21.0-32.0); MAGNESIUM 1.4 MG/DL (1.5-2.5); POTASSIUM 3.7 MEQ/L (3.5-5.1)
[2017-04-03] MEDS: ACETAMINOPHEN/HYDROcodone 325 MG/5 MG TAB PO PRN ×5 (06:44→23:19)
[2017-04-03] MEDS ORDERED: MAGNESIUM SULFATE 1 GM PREMIX 100 ML IV ONE (07:45)
--- NOTE | 2017-04-03 08:29 | MB ---
cc: JAVIER MEJIA DATE OF CONSULTATION 04/02/2017 REASON FOR CONSULTATION Ms. Ryan is a 76-year-old female with a history of paroxysmal atrial fibrillation. She has been on warfarin anticoagulation. She has had severe fatigue, excessive shortness of breath and dizziness over the last several weeks. She was found to have severe bradycardia in the 40s. She has been ruled out for myocardial function by enzymes. She was referred for placement of permanent pacemaker. Her INR yesterday was 3.4. She has not had any chest pain or EKG changes. She developed diarrhea this morning and is undergoing evaluation. PAST MEDICAL HISTORY Positive for: 1. Paroxysmal atrial fibrillation 2. Hypertension 3. Dyslipidemia 4. Type 2 diabetes mellitus MEDICATIONS Include: 1. Aspirin 2. Celexa 3. Cozaar 4. Protonix 5. Glucophage 6. Januvia 7. Lipitor 8. Amaryl ALLERGIES None SOCIAL HISTORY The patient does not smoke. She does not drink alcohol. She is accompanied by her grandson. FAMILY HISTORY Negative for heart disease. REVIEW OF SYSTEMS Otherwise negative. PHYSICAL EXAMINATION Blood pressure 172/64, pulse 47 and regular. HEENT: Negative. 2+ carotid upstrokes. No bruits. LUNGS: Clear. HEART: Regular with no murmur, gallop or rub. ABDOMEN: Soft, no bruits. EXTREMITIES: Without edema, 2+ distal pulses. NEUROLOGIC: Grossly nonfocal. EKG was reviewed and showed sinus bradycardia, left axis and right bundle-branch block with secondary ST-T changes. LABORATORY DATA Hemoglobin 13.5, potassium 3.7, creatinine 0.7, troponin 0.02, 0.05 and 0.03. LDL 66, AST and ALT normal. DIAGNOSIS 1. Sick sinus syndrome with severe symptomatic bradycardia. 2. Paroxysmal atrial fibrillation 3. Hypertension 4. Dyslipidemia 5. Diabetes mellitus DISPOSITION Ms. Ryan will be scheduled for the placement of a dual-chamber permanent pacemaker. She is undergoing evaluation for the infectious reason for her diarrhea. She will be tentatively scheduled for the procedure in the next 48 hours. MD LUPE Jaramillo/KIRT /6:42 PM /8:08 AM [facility] CENTERMarisol
[2017-04-03] MEDS: ASPIRIN 325 MG TAB PO SCH (08:45)
[2017-04-03] MEDS: LOSARTAN 50 MG TAB PO SCH (08:45)
[2017-04-03] MEDS: CITALOPRAM HYDROBROMIDE 20 MG TAB PO SCH (08:45)
[2017-04-03] MEDS: PANTOPRAZOLE SOD 20 MG DELAYED RELEASE TAB PO SCH (08:46)
[2017-04-03] MEDS: metFORMIN HCL 500 MG TAB PO SCH (08:46)
[2017-04-03] MEDS: GLIMEPIRIDE 2 MG TAB PO SCH ×2 (08:47→16:00)
--- NOTE | 2017-04-03 11:55 | HHI.PR ---
Subjective Subjective Remarks No more diarrhea no abd pain slept fair c/o right foot pain, with flexion, no recent injury c/o right hand pinky finger pain, hurts to make fist, injured a few days ago no cp no sob going for PPM tomorrow Tele reviewed, afib, HR 40s Review of Systems Constitutional Constitutional Remarks 12 point ros completed, negative except as noted above Vitals/Results Intake & Output 04/03/17 04/03/17 04/04/17 14:59 22:59 06:59 Intake Total 100 ml Balance 100 ml IV Total 100 ml Vital Signs Vital Signs Date Time Temp Pulse Resp B/P (MAP) Pulse Ox O2 Delivery O2 Flow Rate FiO2 04/03/17 11:00 97.5 46 18 126/75 (92) 95 04/03/17 11:00 44 04/03/17 11:00 96 Room Air 04/03/17 07:44 20 04/03/17 07:00 44 04/03/17 07:00 96 Room Air 04/03/17 03:00 46 04/03/17 03:00 93 Room Air 04/03/17 03:00 97.9 46 12 109/58 (75) 93 04/02/17 23:00 95 Room Air 04/02/17 23:00 98.6 42 12 156/81 (106) 96 04/02/17 23:00 42 04/02/17 21:15 21 04/02/17 20:30 95 Room Air 04/02/17 19:00 98.2 55 16 123/65 (84) 95 04/02/17 19:00 56 04/02/17 19:00 95 Nasal Cannula 2.00 04/02/17 15:00 56 04/02/17 15:00 98 Nasal Cannula 2.00 04/02/17 15:00 98.6 47 16 117/64 (81) 98 CBC/BMP: 04/03/17 0552 04/03/17 0552 Lab Results Laboratory Tests Test 04/03/17 05:52 White Blood Count 6.3 TH/MM3 Red Blood Count 3.93 MIL/MM3 Hemoglobin 12.9 GM/DL Hematocrit 37.9 % Mean Corpuscular Volume 96.4 FL Mean Corpuscular Hemoglobin 32.9 PG Mean Corpuscular Hemoglobin Concent 34.1 % Red Cell Distribution Width 13.8 % Platelet Count 131 TH/MM3 Mean Platelet Volume 8.6 FL Prothrombin Time 12.9 SEC Prothromb Time International Ratio 1.2 RATIO Blood Urea Nitrogen 17 MG/DL Creatinine 0.56 MG/DL Random Glucose 111 MG/DL Calcium Level 8.7 MG/DL Magnesium Level 1.4 MG/DL Sodium Level 140 MEQ/L Potassium Level 3.7 MEQ/L Chloride Level 104 MEQ/L Carbon Dioxide Level 30.2 MEQ/L Anion Gap 6 MEQ/L Estimat Glomerular Filtration Rate 106 ML/MIN Physical Exam General General Appearance: Well Developed, Well Nourished, No Acute Distress, Comfortable Eyes Eye Exam: Pupils Equal, Pupils Reactive Ears & Nose Ears & Nose Exam: Nasal Mucosa [place] Throat Throat Exam: Oral Mucosa [place] & Moist Neck Neck Exam: Neck Supple, Trachea Midline Pulmonary Resp Exam: Clear Bilaterally Cardiology CV Exam: Good Perfusion, Bradycardia Gastrointestinal/Abdomen GI Exam: Soft, Non-Tender, Bowel Sounds Present, Non-Distended Musculoskeletal MS Exam: Joints Intact MS Remarks right foot pain with flexion, along plantar area right hand pinky finger, painful, can't flex, swelling noted Integumentary Skin Exam: Warm, Dry Extremeties Extremities Exam: No Edema, Pedal Pulses Palpable Neurologic Neuro Exam: Alert, Awake, Oriented, Speech Clear, Moving All Extremities, No Focal Deficits Psychiatric Psych Exam: Appropriate Responses VTE Prophylaxis VTE Prophylaxis Device: SCDs Assessment/Plan Problem List: (1) SSS (sick sinus syndrome) ICD Codes: I49.5 - Sick sinus syndrome (2) Diarrhea ICD Codes: R19.7 - Diarrhea, unspecified Status: Acute (3) Diabetes mellitus ICD Codes: E11.9 - Type 2 diabetes mellitus without complications Status: Acute (4) Symptomatic bradycardia ICD Codes: R00.1 - Bradycardia, unspecified Status: Acute (5) Chest pain ICD Codes: R07.9 - Chest pain, unspecified Status: Acute (6) Atrial fibrillation ICD Codes: I48.91 - Unspecified atrial fibrillation Status: Chronic Assessment/Plan 76-year-old white female presented to the emergency room with complaint of chest pain, was noted bradycardic received atropine. Recently diagnosed with A. fib Symptomatically bradycardia, hypotension Atrial fibrillation, slow ventricular rate -Continue serial troponin-negative -Appreciate cardiology input, Dr. Cui has been consulted for possible pacemaker insertion. Tentatively schedule for tomorrow -Vitamin K has been given to reverse the effects of Coumadin, INR 1.2 today -We will keep patient nothing by mouth at this time -Continue aspirin Reported diarrhea, has had 4 stools -Check stools for C. difficile -no more stools since yesterday morning. No fever, no abd. pain, tolerating diet well. Type 2 diabetes -Accu-Cheks before meals and at bedtime with insulin therapy History hypertension, patient initially had low blood pressure now trending up -Continue home medication Hyperlipidemia -Continue home medication Hypomagnesemia -replace Mag Right foot and right hand pinky finger pain -check xray -pain management SCDs for DVT prophylaxis Stable to proceed with PPM, no longer having diarrhea, no leukocytosis, no fever D/W pt and D/W Dr. Chinchilla D/W RN This patient was seen by myself and Dr. Chinchilla, this note is written on his behalf Problem Qualifiers (1) Diabetes mellitus: Qualified Codes: E11.8 - Type 2 diabetes mellitus with unspecified complications (2) Chest pain: (3) Atrial fibrillation: Qualified Codes: I48.91 - Unspecified atrial fibrillation Jossy Day Apr 03, 2017 11:55
--- NOTE | 2017-04-03 13:13 | RADRPT ---
EXAM DATE/TIME: 04/03/2017 12:41 [facility] COMPARISON: No previous studies available for comparison. INDICATIONS : Right hand, 5th digit pain. MEDICAL HISTORY : Hypertension. Diabetes mellitus type II. SURGICAL HISTORY : None. ENCOUNTER: Subsequent ACUITY: 1 day PAIN SCORE: 5/10 LOCATION: Right hand. FINDINGS: Subtle cortical irregularity involving the ulnar aspect of the base of the first proximal phalanx. Os seous structures are otherwise intact. Joint spaces are maintained. No significant soft tissue of nor mality. CONCLUSION: 1. Subtle cortical E. regularity of the base of the fifth proximal phalanx which may reflect a subtle fracture. Jasson Campbell MD on April 03, 2017 at 13:09 Board Certified Radiologist. This report was verified electronically.
--- NOTE | 2017-04-03 13:41 | RADRPT ---
EXAM DATE/TIME: 04/03/2017 12:49 [place] COMPARISON: No previous studies available for comparison. INDICATIONS : Left foot pain on anterior side of foot. MEDICAL HISTORY : Hypertension. Diabetes mellitus type II. SURGICAL HISTORY : None. ENCOUNTER: Subsequent ACUITY: 2 days PAIN SCORE: 4/10 LOCATION: Left foot FINDINGS: No definite fractures, or dislocations are identified. No definite lytic or sclerotic lesion is seen . Calcaneal spur is present at the attachment site of the plantar aponeurosis. Slight hypertrophic c hanges present with a multiple tarsal joints. There is mild osteopenia. CONCLUSION: Chronic changes and no evidence for acute fracture. Dayana Loera MD on April 03, 2017 at 13:37 Board Certified Radiologist. This report was verified electronically.
--- NOTE | 2017-04-03 13:58 | PD.CARD.PN ---
Subjective Subjective Remarks No CP, SOB, or dizziness Objective Medications Current Medications Medications (Trade) Dose Ordered Sig/Marco Route Start Time Stop Time Status Last Admin (NS Flush) 2 ml UNSCH PRN IVF 04/01/17 11:45 (Aspirin) 325 mg DAILY PO 04/02/17 09:00 04/03/17 08:45 (Lipitor) 40 mg HS PO 04/01/17 21:00 04/02/17 21:32 (CeleXA) 30 mg DAILY PO 04/02/17 09:00 04/03/17 08:45 (Amaryl) 2 mg BIDAC PO 04/01/17 16:00 Future hold 04/03/17 08:47 ([place] 5-325 Mg) 1 tab Q6H PRN PO 04/01/17 14:30 04/03/17 06:44 (Cozaar) 50 mg DAILY PO 04/02/17 09:00 04/03/17 08:45 (Protonix) 20 mg DAILY PO 04/02/17 09:00 04/03/17 08:46 (D50w (Vial) Inj) 50 ml UNSCH PRN IV 04/01/17 14:30 (Glucagon Inj) 1 mg UNSCH PRN OTHER 04/01/17 14:30 (NovoLOG SUPPLEMENTAL SCALE) 1 ACHS SLIDING SCALE SQ 04/01/17 16:00 04/02/17 10:46 (Pill Splitter) 1 ea UNSCH PRN OTHER 04/01/17 15:15 (Glucophage) 1,000 mg DAILY PO 04/02/17 09:00 04/03/17 08:46 (Januvia) 100 mg DAILY PO 04/02/17 09:00 04/03/17 08:45 Vital Signs / I&O Vital Signs Date Time Temp Pulse Resp B/P (MAP) Pulse Ox O2 Delivery O2 Flow Rate FiO2 04/03/17 11:00 97.5 46 18 126/75 (92) 95 04/03/17 11:00 44 04/03/17 11:00 96 Room Air 04/03/17 07:44 20 04/03/17 07:00 44 04/03/17 07:00 96 Room Air 04/03/17 03:00 46 04/03/17 03:00 93 Room Air 04/03/17 03:00 97.9 46 12 109/58 (75) 93 04/02/17 23:00 95 Room Air 04/02/17 23:00 98.6 42 12 156/81 (106) 96 04/02/17 23:00 42 04/02/17 21:15 21 04/02/17 20:30 95 Room Air 04/02/17 19:00 98.2 55 16 123/65 (84) 95 04/02/17 19:00 56 04/02/17 19:00 95 Nasal Cannula 2.00 04/02/17 15:00 56 04/02/17 15:00 98 Nasal Cannula 2.00 04/02/17 15:00 98.6 47 16 117/64 (81) 98 I/O 04/02/17 04/02/17 04/02/17 04/03/17 04/03/17 04/03/17 07:00 15:00 23:00 07:00 15:00 23:00 Intake Total 480 ml 600 ml 720 ml 100 ml Output Total 800 ml Balance -320 ml 600 ml 720 ml 100 ml Intake Oral 480 ml 600 ml 720 ml IV Total 100 ml Output Urine Total 800 ml # Bowel Movements 2 Physical Exam GENERAL: In NAD SKIN: Warm and dry. HEAD: Normocephalic. EYES: No scleral icterus. No injection or drainage. NECK: Supple, trachea midline. No JVD or lymphadenopathy. CARDIOVASCULAR: Regular rate and rhythm without murmurs, gallops, or rubs. RESPIRATORY: Breath sounds equal bilaterally. No accessory muscle use. GASTROINTESTINAL: Abdomen soft, non-tender, nondistended. MUSCULOSKELETAL: No cyanosis, or edema. Laboratory Laboratory Tests Test 04/03/17 05:52 White Blood Count 6.3 TH/MM3 Red Blood Count 3.93 MIL/MM3 Hemoglobin 12.9 GM/DL Hematocrit 37.9 % Mean Corpuscular Volume 96.4 FL Mean Corpuscular Hemoglobin 32.9 PG Mean Corpuscular Hemoglobin Concent 34.1 % Red Cell Distribution Width 13.8 % Platelet Count 131 TH/MM3 Mean Platelet Volume 8.6 FL Prothrombin Time 12.9 SEC Prothromb Time International Ratio 1.2 RATIO Blood Urea Nitrogen 17 MG/DL Creatinine 0.56 MG/DL Random Glucose 111 MG/DL Calcium Level 8.7 MG/DL Magnesium Level 1.4 MG/DL Sodium Level 140 MEQ/L Potassium Level 3.7 MEQ/L Chloride Level 104 MEQ/L Carbon Dioxide Level 30.2 MEQ/L Anion Gap 6 MEQ/L Estimat Glomerular Filtration Rate 106 ML/MIN Imaging Last Impressions Hand X-Ray 04/03/17 0000 Signed Impressions: Service Date/Time: March 12:41 - CONCLUSION: 1. Subtle cortical E. regularity of the base of the fifth proximal phalanx which may reflect a subtle fracture. Jasson Campbell MD Foot X-Ray 04/03/17 0000 Signed Impressions: Service Date/Time: March 12:49 - CONCLUSION: Chronic changes and no evidence for acute fracture. Dayana Loera MD Chest X-Ray 04/01/17 1140 Signed Impressions: Service Date/Time: Saturday, April 01, 2017 12:36 - CONCLUSION: Moderate cardiomegaly. Clear lungs. Maurizio Jeter Jr., MD Assessment and Plan Problem List: (1) SSS (sick sinus syndrome) ICD Codes: I49.5 - Sick sinus syndrome (2) Symptomatic bradycardia ICD Codes: R00.1 - Bradycardia, unspecified Status: Acute (3) Atrial fibrillation ICD Codes: I48.91 - Unspecified atrial fibrillation Status: Chronic (4) Diabetes mellitus ICD Codes: E11.9 - Type 2 diabetes mellitus without complications Status: Acute (5) Diarrhea ICD Codes: R19.7 - Diarrhea, unspecified Status: Acute Assessment and Plan No recurrent diarrhea. INR 1.2. Proceed with DDD pacemaker placement tomorrow. D /w pt and . Problem Qualifiers (1) Atrial fibrillation: Qualified Codes: I48.91 - Unspecified atrial fibrillation (2) Diabetes mellitus: Qualified Codes: E11.8 - Type 2 diabetes mellitus with unspecified complications Titi Cui MD Apr 03, 2017 13:58
[2017-04-03] MEDS: ATORVASTATIN 40 MG TAB PO SCH (21:07)
[2017-04-04] VITALS (10 sets, daily range): BP systolic 124–141; BP diastolic 62–86; PULSE 48–63; RESP 16–18; TEMP 98–100.1; O2SAT 90–98
[2017-04-04] MEDS: ACETAMINOPHEN/HYDROcodone 325 MG/5 MG TAB PO PRN ×3 (03:27→22:26)
[2017-04-04] MEDS: GLIMEPIRIDE 2 MG TAB PO SCH (04:43)
[2017-04-04] MEDS: INSULIN ASPART SUPPLEMENTAL SCALE SQ SCH ×3 (06:46→19:38)
[2017-04-04] MEDS ORDERED: INDOMETHACIN 50 MG CAP PO ONE (09:00)
[2017-04-04] MEDS: ASPIRIN 325 MG TAB PO SCH (09:00)
[2017-04-04] MEDS: CITALOPRAM HYDROBROMIDE 20 MG TAB PO SCH (09:17)
[2017-04-04] MEDS: LOSARTAN 50 MG TAB PO SCH (09:18)
[2017-04-04] MEDS: PANTOPRAZOLE SOD 20 MG DELAYED RELEASE TAB PO SCH (09:18)
[2017-04-04] MEDS: metFORMIN HCL 500 MG TAB PO SCH (09:18)
--- NOTE | 2017-04-04 13:08 | HHI.PR ---
Subjective Subjective Remarks sleeping now no diarrhea, no bm x 2 days right foot pain fair NPO for procedure this afternoon SB on monitor family at bsd Review of Systems Constitutional Constitutional Remarks 12 point ros completed, negative except as noted above Vitals/Results Vital Signs Vital Signs Date Time Temp Pulse Resp B/P (MAP) Pulse Ox O2 Delivery O2 Flow Rate FiO2 04/04/17 11:00 50 04/04/17 11:00 98.6 50 16 134/79 (97) 94 04/04/17 11:00 94 Nasal Cannula 2.00 04/04/17 09:17 95 Nasal Cannula 2.00 04/04/17 08:49 16 04/04/17 08:00 97 Nasal Cannula 2.00 04/04/17 07:00 98.6 61 16 138/86 (103) 98 04/04/17 07:00 Room Air 04/04/17 07:00 55 04/04/17 03:26 97 Room Air 04/04/17 03:26 99.1 55 18 141/62 (88) 97 04/04/17 03:00 50 04/03/17 23:32 59 04/03/17 23:20 98.6 59 18 134/83 (100) 96 04/03/17 23:20 96 Room Air 04/03/17 20:00 98.8 72 18 124/80 (95) 97 04/03/17 20:00 97 Room Air 04/03/17 19:00 62 04/03/17 15:09 20 04/03/17 15:07 98 Room Air 04/03/17 15:07 98.0 50 18 128/72 (90) 98 04/03/17 15:07 50 CBC/BMP: 04/03/17 0552 04/03/17 0552 Physical Exam General General Appearance: Well Developed, Well Nourished, No Acute Distress, Comfortable Eyes Eye Exam: Pupils Equal, Pupils Reactive Ears & Nose Ears & Nose Exam: Nasal [place] Throat Throat Exam: Oral [place] & Moist Neck Neck Exam: Neck Supple, Trachea Midline Pulmonary Resp Exam: Clear Bilaterally Cardiology CV Exam: Good Perfusion, Bradycardia Gastrointestinal/Abdomen GI Exam: Soft, Non-Tender, Bowel Sounds Present, Non-Distended Musculoskeletal MS Exam: Joints Intact MS Remarks right foot pain with flexion, along plantar area right hand pinky finger, painful, can't flex, swelling noted Integumentary Skin Exam: Warm, Dry Extremeties Extremities Exam: No Edema, Pedal Pulses Palpable Neurologic Neuro Exam: Alert, Awake, Oriented, Speech Clear, Moving All Extremities, No Focal Deficits Psychiatric Psych Exam: Appropriate Responses VTE Prophylaxis VTE Prophylaxis Device: SCDs Assessment/Plan Problem List: (1) SSS (sick sinus syndrome) ICD Codes: I49.5 - Sick sinus syndrome (2) Diarrhea ICD Codes: R19.7 - Diarrhea, unspecified Status: Acute (3) Diabetes mellitus ICD Codes: E11.9 - Type 2 diabetes mellitus without complications Status: Acute (4) Symptomatic bradycardia ICD Codes: R00.1 - Bradycardia, unspecified Status: Acute (5) Chest pain ICD Codes: R07.9 - Chest pain, unspecified Status: Acute (6) Atrial fibrillation ICD Codes: I48.91 - Unspecified atrial fibrillation Status: Chronic Assessment/Plan 76-year-old white female presented to the emergency room with complaint of chest pain, was noted bradycardic received atropine. Recently diagnosed with A. fib Symptomatically bradycardia, hypotension Atrial fibrillation, slow ventricular rate -Continue serial troponin-negative -Appreciate cardiology input, Dr. Cui has been consulted for possible pacemaker insertion. Tentatively schedule for tomorrow -Vitamin K has been given to reverse the effects of Coumadin, INR 1.2 -We will keep patient nothing by mouth at this time -Continue aspirin Reported diarrhea, had 4 stools, resolved now -no more stools Type 2 diabetes -Accu-Cheks before meals and at bedtime with insulin therapy History hypertension, patient initially had low blood pressure now trending up -Continue home medication Hyperlipidemia -Continue home medication Right foot and right hand pinky finger pain -xrays reviewed, okay -pain management -check uric acid in am -Indocin given yesterday -Staley PRN SCDs for DVT prophylaxis Going for PPM today D/W pt and family D/W Dr. Chinchilla D/W RN This patient was seen by myself and Dr. Chinchilla, this note is written on his behalf Problem Qualifiers (1) Diabetes mellitus: Qualified Codes: E11.8 - Type 2 diabetes mellitus with unspecified complications (2) Chest pain: (3) Atrial fibrillation: Qualified Codes: I48.91 - Unspecified atrial fibrillation Jossy Day Apr 04, 2017 13:08
--- NOTE | 2017-04-04 14:00 | HHI.PR ---
Subjective Remarks diarrhea resolved, . denies chest pain, right foot swelling Objective Vital Signs Date Time Temp Pulse Resp B/P (MAP) Pulse Ox O2 Delivery O2 Flow Rate FiO2 04/04/17 11:00 50 04/04/17 11:00 98.6 50 16 134/79 (97) 94 04/04/17 11:00 94 Nasal Cannula 2.00 04/04/17 09:17 95 Nasal Cannula 2.00 04/04/17 08:49 16 04/04/17 08:00 97 Nasal Cannula 2.00 04/04/17 07:00 98.6 61 16 138/86 (103) 98 04/04/17 07:00 Room Air 04/04/17 07:00 55 04/04/17 03:26 97 Room Air 04/04/17 03:26 99.1 55 18 141/62 (88) 97 04/04/17 03:00 50 04/03/17 23:32 59 04/03/17 23:20 98.6 59 18 134/83 (100) 96 04/03/17 23:20 96 Room Air 04/03/17 20:00 98.8 72 18 124/80 (95) 97 04/03/17 20:00 97 Room Air 04/03/17 19:00 62 04/03/17 15:09 20 04/03/17 15:07 98 Room Air 04/03/17 15:07 98.0 50 18 128/72 (90) 98 04/03/17 15:07 50 I/O 04/03/17 04/03/17 04/03/17 04/04/17 04/04/17 04/04/17 06:59 14:59 22:59 06:59 14:59 22:59 Intake Total 720 ml 100 ml 480 ml 240 ml Output Total 750 ml 0 ml Balance 720 ml 100 ml -270 ml 240 ml Intake Oral 720 ml 480 ml 240 ml IV Total 100 ml Output Urine Total 750 ml 0 ml # Bowel Movements 0 VSS, HR 50 CHEST: CTA HEART: SB, S1,S2, RRR ABD;ST, NT EXT: right foot edema Result Diagram: 04/03/17 0552 04/03/17 0552 Assessment and Plan Assessment and Plan pt will have dual pacemaker implant by Dr Cui this afternoon. Coumadin will be restarted afterwards. I will follow Dinora Louis MD Apr 04, 2017 14:00
[2017-04-04] MEDS ORDERED: NITROGLYCERIN-D5W 50 MG/250 ML 250 ML ONE (15:55)
[2017-04-04] MEDS ORDERED: ceFAZolin INJ 1,000 MG VIAL ONE (16:07)
[2017-04-04] MEDS ORDERED: VANCOMYCIN 500 MG VIAL ONE (16:07)
[2017-04-04] MEDS ORDERED: VANCOMYCIN HCL 1000 MG VIAL ONE (16:07)
[2017-04-04] MEDS ORDERED: MIDAZOLAM HCL 5 MG/5 ML VIAL ONE (16:15)
[2017-04-04] MEDS ORDERED: LIDOCAINE HCL 2% 50 ML VIAL ONE (16:34)
[2017-04-04] MEDS ORDERED: MIDAZOLAM HCL 2 MG/2 ML VIAL ONE (18:08)
--- NOTE | 2017-04-04 18:56 | CATHPROC ---
[facility] HIS Report Study Information Study Number Admission Scheduled Start Study Start [id number] Apr 01 2017 2:16PM 04/04/2017 Apr 04 2017 4:01PM [place] [facility] Cardiac Pacer/ICD Admit Source Facility Department Other [facility] Physician and Clinical Staff Initial Titi Youssef Window Glazier Dimitris RN, Darion Window GlazierDavi Kolb RN Window Glazier Ling Gael RN Other cathlab, cathlab Recorder Rehan Laird,TERRA COTTA ROOFER(BS) Recorder Tyree Beck,RT(R) Recorder Miriam Lou,MG TECH2 Scrub Elisha Conner RCIS TECH2 Procedures Performed Procedure Lead Insertion Equipment Time Extractive Metallurgist Description Size Mfg Part Number Used/Scraped 16:02 [employer] DRAPE, [place] X-RAY 12X17 12X17 D-100 *[id number] Used 17:37 ANGIO-DYNAMICS LEAD, TENDRIL MRI 46CM [id number] Used MPIS-502-10.0- INTRODUCER SET, 16:47 [employer] FR 5 SC-NT-U-SST Used MICROPUNCTURE, STIFFENED *[id number] MPIS-502-10.0- INTRODUCER SET, 16:02 [employer] FR 5 SC-NT-U-SST Used MICROPUNCTURE, STIFFENED *[id number] MPIS-502-10.0- INTRODUCER SET, 16:02 [employer] FR 5 SC-NT-U-SST Used MICROPUNCTURE, STIFFENED *[id number] 16:02 [employer] DRAPE, IOBAN 2 [id number] 26cm x 20cm Used *[id number] TP-1103 16:02 [employer] SUTURE, STRIP PLUS 1/2" * Used *[id number] 16:02 MEDLINE PACER ADHESIVE, MASTISOL 2/3CC 2/3CC 0523-48 Used 16:02 MEDLINE PACER WHEELER, LIMB * 2530 *[id number] Used [id number] 16:02 MEDLINE PACER PACK, PACER CUSTOM * Used *[id number] 16:02 MEDLINE PACER PEN, SKIN DUAL W/ RULER * Used *[id number] 16:47 [place] [employer] MEDICAL PACER SAFE SHEATH, FR8, 13CM FR 8 CLS-1008 Used 16:47 [place] [employer] MEDICAL PACER SAFE SHEATH, FR8, 13CM FR 8 CLS-1008 Used PROBE COVER, STERILE [id number] 16:02 [employer] MEDICAL * Used ULTRASOUND W/ GEL *[id number] 16:30 Needle Sponge Count 2 22 Used 16:30 Needle Sponge Count 25 1 Used 16:30 Needle Sponge Count 5 5 Used [id number] *[id number] SUTURE, 0 ETHIBOND [CT1] (CX21D), 8pk SUTURE, 2-0 VICRYL [CT1] ([id number]) SUTURE, 2-0 VICRYL [CT1] (QHS998D) SUTURE, 4-0 VICRYL [PS2] ([id number]) [id number] 16:02 [employer],WARM AIR CCL * Used *[id number] LEAD, TENDRIL ACTIVE FIXATION 17:25 [employer] 52CM [id number] Used BIPOLAR PACEMAKER, ASSVINCE RUSSELL 17:52 [facility] [id number] Used [facility] PAD, ELECTROSURGICAL 16:02 * [id number] *[id number] Used SURGICAL GROUNDING ORANGE [id number] 16:02 [employer] MAGUE. ELECTRODE, PRO-PADZ BIPHASIC * Used *[id number] Equipment Model, Serial, Lot Number and Expiration Data Description Model Number Serial Number Lot Number Expiration Date LEAD, TENDRIL ACTIVE FIXATION [id number] 06-10-2017 BIPOLAR LEAD, TENDRIL MRI [id number] 06-10-2017 PACEMAKER, JULISA RUSSELL MRI [id number] 02-27-2017 History: Allergies Allergy Reaction No Known Allergies Labs Hgb (g/dl) Hct (%) WBC (l/cumm) Platelets (thousands) 11.60-17.00 35.00-51.00 4.00-11.00 150.00-450.00 12.0 37 3.9 131 Glucose (mg/dl) BUN (mg/dl) Creatinine (mg/dl) BUN:Creatinine (1:x) 74.00-106.00 7.00-18.00 0.50-1.30 10.00-20.00 111 17 0.5 34 Na (meq/l) K (meq/l) 136.00-145.00 3.50-5.10 140 3.7 INR (PTT:PT) 0.90-1.10 1.2 CPK-MB (ng/ML) 0.50-3.60 Not Drawn Medication Medication Total Dose (Bolus/Oral) Medication Total Dosage/Unit 2% XYLOCAINE 50 mL FENTANYL 200 mcg VERSED 5 mg Medications (Bolus/Oral) Medication Time Given Dosage/Unit Administered By Reason FENTANYL 04/04/2017 4:40:02 PM 50 mcg Dimitris TELLEZ, Darion 50 mcg FENTANYL given in lab by Darion Shanks RN in Right Antecubital via Peripheral IV. VERSED 04/04/2017 4:41:00 PM 2 mg Dimitris TELLEZ, Darion 2 mg VERSED given in lab by Darion Shanks RN in Right Antecubital via Peripheral IV. FENTANYL 04/04/2017 4:42:09 PM 25 mcg Erin Galearet 25 mcg FENTANYL given in lab by Ling Gale RN in Right Antecubital via Peripheral IV. 2% XYLOCAINE 04/04/2017 4:46:23 PM 50 mL Titi Cui 50 mL 2% XYLOCAINE given in lab by Titi Cui in Left shoulder via Subcutaneous. FENTANYL 04/04/2017 5:17:30 PM 25 mcg Mrache, Ling 25 mcg FENTANYL given in lab by Ling Gale RN in Right Antecubital via Peripheral IV. VERSED 04/04/2017 5:18:10 PM 1 mg Mrache, Ling 1 mg VERSED given in lab by Ling Gale RN in Right Antecubital via Peripheral IV. FENTANYL 04/04/2017 5:55:46 PM 25 mcg Mrache, Ling 25 mcg FENTANYL given in lab by Ling Gale RN in Right Antecubital via Peripheral IV. VERSED 04/04/2017 6:02:40 PM 1 mg Mrache, Ling 1 mg VERSED given in lab by Ling Gale RN in Right Antecubital via Peripheral IV. FENTANYL 04/04/2017 6:04:34 PM 50 mcg Mrache, Ling 50 mcg FENTANYL given in lab by Ling Gale RN in Right Antecubital via Peripheral IV. VERSED 04/04/2017 6:11:50 PM 1 mg Mrache, Ling 1 mg VERSED given in lab by Ling Gale RN in Right Antecubital via Peripheral IV. FENTANYL 04/04/2017 6:12:03 PM 25 mcg Mrache, Ling 25 mcg FENTANYL given in lab by iLng Gale RN in Right Antecubital via Peripheral IV. Medication (Drip) Medication Time Given Dosage/Unit Concentration/Unit Diluent (ml) Solutio n ANCEF 04/04/2017 4:39:02 PM 2 g 2 g ANCEF given in lab by Darion Shanks RN in Right Antecubital via Peripheral IV. IV Solutions 04/04/2017 4:01:32 PM 0 mL (IV) 500 NaCl .9 Patient arrived on IV Solutions in Right Antecubital via Peripheral IV. Pump/Drip Flow = 20 ml/hr usi ng NaCl .9. VANCOMYCIN DRIP 04/04/2017 4:25:00 PM 1 g 1 g VANCOMYCIN DRIP given in lab by Darion Shanks RN in Right Antecubital via Peripheral IV. Initial Case Assessment Cardiovascular HR Rhythm NIBP Chest Pain 48 sinusbrady 163/81 0 Edema Present Skin color Skin None Normal Warm Dry Neurological State Oriented to time-place- Alert Moves all extremities person Respiration - General Respiration Rate SpO2 (%) O2 (lpm) (B/min) 15 100 3 Chronological Log Time Study Chronological Log 16:01:23 Patient arrived via Bed. 16:01:23 Patient Name, D.O.B, / Armband Verified By R.N. 16:01:24 Consent signed by the physician and the patient and verified by the [facility] staff. 16:01:24 Pre-op and post- op instructions given; patient acknowledges understanding of instructions. 16:01:24 Verbal Stimulation=2 Physical Stimulation=2 Airway=2 Respiration=2 TOTAL=8. (0=absent, 1=li mited, 2=present) 16:01:25 Presedation assessment performed by [employer] [facility] [facility] RN. 16:01:26 Immediate Presedation assesment performed by physician. 16:01:27 Patient has been NPO for More than 6Hrs. 16:01:27 Skin Breakdown- none per patient 16:01:28 Patient Warmer Placed on the Table. 16:01:29 Disposable Defibrillator Pads Placed On Patient. 16:01:29 Nacho Prominences Protected 16:01:31 A # 20 IV was noted in the Antecubital (right). Grade = 0 16:01:32 A # 20 IV was noted in the Forearm (left). Grade = 0 16:01:32 Patient arrived on IV Solutions in Right Antecubital via Peripheral IV. Pump/Drip Flow = 20 ml/hr using NaCl .9. 16:01:33 History and physical on the chart or being dictated. 16:06:11 2% CHLORHEXIDINE GLUCONATE WASH AND NASAL SWIPE DONE PRIOR TO PROCEDURE. 16:17:29 Table restraints applied according to hospital policy Vitals capture started with the following parameters, Patient=Adult, Interval=5 min, Initial Pr jtmqqq=293 mmHg, 16:18:43 Deflation Rate=5 mmHg, Cuff placed on Right Arm Assessment: Initial Case, HR=48 BPM, Rhythm=sinusbrady, OEDW=503/81 mmhg, Chest Pain=0, Edema=N one, Color=Normal, Skin = Warm, Dry 16:18:47 Neurological: State=Alert, Ox3, RAINEY Respiration: Resp=15 B/min, JkO6=723 %, O2=3 lpm 16:19:08 Reference ECG taken 16:19:25 HR=65 bpm, XWVS=908/81 mmhg, SpO2=99.0 %, Resp=16 B/min, Pain=0, Petey=10, Gutierrez=2 16:24:01 Left arm and shoulder prepped with 2% chlorhexidine, and with a 3 min. waiting time. 16:24:30 HR=49 bpm, EZIJ=344/76 mmhg, AwU6=058.0 %, Resp=19 B/min, Pain=0, Petey=10, Gutierrez=2 16:25:00 1 g VANCOMYCIN DRIP given in lab by Darion Shanks RN in Right Antecubital via Peripheral IV. First Sponge And Instrument Count Done by Davi Fierro RN. 16:27:41 Hypo's: 5, Sponges: 25, Bovie/scratch: 2 Sutures: 11, Blades: 2, Instruments: 26, Syveck Patches: 0 16:29:27 HR=50 bpm, DVAQ=140/78 mmhg, SpO2=96.0 %, Resp=23 B/min, Pain=0, Petey=10, Gutierrez=2 16:35:01 HR=50 bpm, HFXX=308/79 mmhg, SpO2=97.0 %, Resp=15 B/min, Pain=0, Petey=10, Gutierrez=2 16:35:36 paged 16:36:42 MD arrived. 16:39:02 2 g ANCEF given in lab by Darion Shanks RN in Right Antecubital via Peripheral IV. 16:40:02 50 mcg FENTANYL given in lab by Darion Shanks RN in Right Antecubital via Peripheral IV. 16:40:12 HR=48 bpm, BWIV=346/74 mmhg, RuU3=453.0 %, Resp=15 B/min, Pain=0, Petey=10, Gutierrez=2 16:41:00 2 mg VERSED given in lab by Darion Shanks RN in Right Antecubital via Peripheral IV. 16:42:09 25 mcg FENTANYL given in lab by Ling Gale RN in Right Antecubital via Peripheral IV . Time Out. Correct patient, procedure, procedure equipment, site and side verified with physicia n present. Time 16:44:58 concurred by MD, individual staff. 16:45:02 Case Start 16:45:03 HR=47 bpm, ZTOC=271/62 mmhg, SpO2=98.0 %, Resp=16 B/min, Pain=0, Petey=10, Gutierrez=2 16:46:23 50 mL 2% XYLOCAINE given in lab by Titi Cui in Left shoulder via Subcutaneous. 16:48:03 Surgical Incision Made. 16:48:09 NIBP STAT measurement started. 16:48:15 A pocket was created at the L Upper Chest. 16:49:25 HR=46 bpm, YHTG=566/54 mmhg, SpO2=98.0 %, Resp=8 B/min, Pain=0, Petey=10, Gutierrez=2 16:55:50 HR=47 bpm, ZDLF=124/58 mmhg, SpO2=99.0 %, Resp=23 B/min, Pain=0, Petey=10, Gutierrez=2 16:59:21 HR=47 bpm, NIBP=99/59 mmhg, SpO2=99.0 %, Resp=22 B/min, Pain=0, Petey=10, Gutierrez=2 16:59:25 Vascular access was obtained in the Subclav. Vein (Lft. 16:59:31 Wire inserted 17:03:18 wire removed, pressure held. 17:04:02 Vascular access was obtained in the Subclav. Vein (Lft. 17:04:20 HR=48 bpm, NIBP=98/67 mmhg, InO6=976.0 %, Resp=31 B/min, Pain=0, Petey=10, Gutierrez=2 17:09:56 HR=47 bpm, FONV=583/87 mmhg, FmS3=377.0 %, Resp=22 B/min, Pain=0, Petey=10, Gutierrez=2 17:13:09 Vascular access was obtained in the Subclav. Vein (Lft. 17:13:15 Wire inserted 17:13:23 Wire removed, pressure held. 17:14:55 HR=49 bpm, ZHJL=591/80 mmhg, RwV5=926.0 %, Resp=14 B/min, Pain=0, Petey=10, Gutierrez=2 17:17:30 25 mcg FENTANYL given in lab by Ling Gale RN in Right Antecubital via Peripheral IV . 17:18:10 1 mg VERSED given in lab by Ling Gale, ROSALINDA in Right Antecubital via Peripheral IV. 17:19:06 Vascular access was obtained in the Subclav. Vein (t. 17:19:11 Wire inserted 17:19:31 HR=49 bpm, VZLA=283/75 mmhg, NgV8=295.0 %, Resp=21 B/min, Pain=0, Petey=10, Gutierrez=2 17:21:07 Vascular access was obtained in the Subclav. Vein (Lft. 17:21:09 Wire inserted 17:22:12 A SAFE SHEATH, FR8, 13CM FR 8 was advanced into the Fem Vein (right) using the Percutaneous technique. 17:23:45 A LEAD, TENDRIL ACTIVE FIXATION BIPOLAR 52CM was inserted and positioned in the RV. 17:24:26 HR=43 bpm, BQIR=678/78 mmhg, MfR2=411.0 %, Resp=26 B/min, Pain=0, Petey=10, Gutierrez=2 17:26:09 The RV lead impedance and threshold being tested. 17:28:52 Vitals capture stopped. Vitals capture started with the following parameters, Patient=Adult, Interval=5 min, Initial Pr akjhgb=631 mmHg, 17:28:55 Deflation Rate=5 mmHg, Cuff placed on Right Arm 17:29:33 HR=51 bpm, WQZR=305/73 mmhg, SpO2=98.0 %, Resp=20 B/min, Pain=0, Petey=10, Gutierrez=2 17:30:33 The RV lead impedance and threshold being tested. 17:30:58 Vitals capture stopped. Vitals capture started with the following parameters, Patient=Adult, Interval=2 min, Initial Pr uogzjn=603 mmHg, 17:31:37 Deflation Rate=5 mmHg, Cuff placed on Right Arm 17:32:13 HR=56 bpm, PRZK=540/60 mmhg, TbQ6=378.0 %, Resp=17 B/min, Pain=0, Petey=10, Gutierrez=2 17:32:36 The RV lead was sutured to the fascia. 17:34:08 Vitals capture stopped. Vitals capture started with the following parameters, Patient=Adult, Interval=2 min, Initial Pr bkyozm=517 mmHg, 17:34:19 Deflation Rate=5 mmHg, Cuff placed on Right Arm 17:34:59 HR=52 bpm, OLBK=377/69 mmhg, SpO2=99.0 %, Resp=25 B/min, Pain=0, Petey=10, Gutierrez=2 17:35:22 A SAFE SHEATH, FR8, 13CM FR 8 was advanced into the Fem Vein (right) using the Percutaneous technique. 17:36:40 A LEAD, TENDRIL MRI 46CM was inserted and positioned in the RA. 17:36:52 HR=62 bpm, ZFDD=866/63 mmhg, SpO2=99.0 %, Resp=15 B/min, Pain=0, Petey=10, Gutierrez=2 17:38:50 NT=605 bpm, NQTR=949/81 mmhg, UoD9=788.0 %, Resp=21 B/min, Pain=0, Petey=10, Gutierrez=2 17:38:57 The Atrial lead impedance and threshold is being tested. 17:41:02 HR=53 bpm, HCSG=642/83 mmhg, SpO2=99.0 %, Pain=0, Petey=10, Gutierrez=2 17:42:54 HR=63 bpm, SNRO=556/73 mmhg, CrM0=122.0 %, Pain=0, Petey=10, Gutierrez=2 17:45:03 HR=51 bpm, NIBP=86/62 mmhg, YtU0=723.0 %, Pain=0, Petey=10, Gutierrez=2 17:47:31 HR=69 bpm, DDAO=997/67 mmhg, RrV7=273.0 %, Pain=0, Petey=10, Gutierrez=2 17:48:47 The Atrial lead was sutured to the fascia. 17:49:34 HR=58 bpm, BKLL=848/71 mmhg, ZkJ5=244.0 %, Pain=0, Petey=10, Gutierrez=2 17:50:58 HR=52 bpm, BITK=568/81 mmhg, IsV4=176.0 %, Pain=0, Petey=10, Gutierrez=2 17:51:16 A PACEMAKER, ASSURITY DR RF MRI was connected and placed in the pocket. 17:53:41 HR=54 bpm, IFAK=587/86 mmhg, RqU2=474.0 %, Pain=0, Petey=10, Gutierrez=2 17:54:01 Pocket flushed with antibiotic solution 17:55:03 HR=58 bpm, JSAB=583/79 mmhg, QhQ6=397.0 %, Pain=0, Petey=10, Guiterrez=2 17:55:46 25 mcg FENTANYL given in lab by Ling Gale, ROSALINDA in Right Antecubital via Peripheral IV . 17:57:45 HR=48 bpm, MOLW=573/80 mmhg, VdB6=584.0 %, Pain=0, Petey=10, Gutierrez=2 17:58:59 HR=76 bpm, PMSX=870/81 mmhg, AgT0=725.0 %, Pain=0, Petey=10, Gutierrez=2 18:01:08 HR=62 bpm, HKXZ=547/43 mmhg, FdX6=500.0 %, Pain=0, Petey=10, Gutierrez=2 18:02:40 1 mg VERSED given in lab by Ling Gale, RN in Right Antecubital via Peripheral IV. 18:02:58 HR=55 bpm, CPKI=106/92 mmhg, KsV6=552.0 %, Pain=0, Petey=10, Gutierrez=2 18:04:34 50 mcg FENTANYL given in lab by Ling Gale, ROSALINDA in Right Antecubital via Peripheral IV . 18:05:05 HR=51 bpm, DQHA=562/70 mmhg, SuY8=052.0 %, Pain=0, Petey=10, Gutierrez=2 18:07:39 HR=54 bpm, ADGE=636/70 mmhg, WpC0=170.0 %, Pain=0, Petey=10, Gutierrez=2 18:09:01 HR=53 bpm, POFC=443/73 mmhg, KiL3=806.0 %, Pain=0, Petey=10, Gutierrez=2 18:11:04 HR=76 bpm, VQGZ=191/67 mmhg, SpO2=99.0 %, Pain=0, Petey=10, Gutierrez=2 18:11:50 1 mg VERSED given in lab by Ling Gale, ROSALINDA in Right Antecubital via Peripheral IV. 18:12:03 25 mcg FENTANYL given in lab by Ling Gale RN in Right Antecubital via Peripheral IV . 18:13:03 HR=53 bpm, CKRP=129/69 mmhg, SpO2=98.0 %, Pain=0, Petey=10, Gutierrez=2 18:14:59 HR=52 bpm, CITV=892/57 mmhg, SpO2=97.0 %, Pain=0, Petey=10, Gutierrez=2 18:16:56 HR=69 bpm, OYGI=056/65 mmhg, SpO2=97.0 %, Pain=0, Petey=10, Gutierrez=2 18:18:20 Pocket flushed with antibiotic solution 18:18:59 HR=53 bpm, DJIS=021/63 mmhg, SpO2=98.0 %, Pain=0, Petey=10, Gutierrez=2 18:19:23 Connecting the device. 18:20:58 HR=60 bpm, FZOM=694/63 mmhg, SpO2=98.0 %, Pain=0, Petey=10, Gutierrez=2 18:21:06 Antibiotic sponges removed from the surgical pocket. Second Sponge And Instrument Count Done by Titi Cui. 18:22:45 Hypo's: 5, Sponges: sponges, Bovie/scratch: 2 Sutures: ~SUTURE~, Blades: 3, Instruments: ~INSTRU~, Syveck Patches: ~SYVECK PATCH~ 54 sponges 18:22:59 HR=62 bpm, ZKCO=676/57 mmhg, SpO2=99.0 %, Pain=0, Petey=10, Gutierrez=2 18:24:57 HR=60 bpm, NVAE=158/62 mmhg, SpO2=99.0 %, Pain=0, Petey=10, Gutierrez=2 18:26:58 HR=60 bpm, CSMM=772/64 mmhg, ImY0=617.0 %, Pain=0, Petey=10, Gutierrez=2 18:27:58 The pocket was closed. 18:29:42 HR=60 bpm, VBBO=234/63 mmhg, SpO2=99.0 %, Pain=0, Petey=10, Gutierrez=2 18:29:48 Lead placement verified under fluoroscopy 18:30:32 Implant Procedure was performed. 18:30:43 A PPM Implant . (Dual) 18:31:00 HR=69 bpm, TBTB=079/69 mmhg, SpO2=99.0 %, Pain=0, Petey=10, Gutierrez=2 18:33:01 HR=60 bpm, FIXL=486/68 mmhg, VuW7=678.0 %, Pain=0, Petey=10, Gutierrez=2 18:35:45 HR=60 bpm, FJBJ=217/72 mmhg, LqM6=990.0 %, Pain=0, Petey=10, Gutierrez=2 18:37:00 Case End 18:37:03 HR=60 bpm, HZJD=373/70 mmhg, SpO2=99.0 %, Pain=0, Petey=10, Gutierrez=2 The Final Sponge And Instrument Count Done by Titi Cui. 18:37:04 Hypo's: 5, Sponges: sponges, Bovie/scratch: 2 Sutures: 11, Blades: 3, Instruments: ~INSTRU~, Syveck Patches: ~SYVECK PATCH~ 54 sponges 18:39:03 HR=60 bpm, UBVI=400/81 mmhg, SpO2=99.0 %, Pain=0, Petey=10, Gutierrez=2 18:41:04 HR=60 bpm, NXDY=210/83 mmhg, SpO2=99.0 %, Pain=0, Petey=10, Gutierrez=2 18:42:14 Steri-strips and a sterile dressing applied to site. 18:43:05 HR=60 bpm, THDU=793/87 mmhg, SpO2=95.0 %, Pain=0, Petey=10, Gutiererz=2 18:46:03 SC=022 bpm, BEML=653/77 mmhg, SpO2=97.0 %, Pain=0, Petey=10, Gutierrez=2 18:46:36 Vitals capture stopped. 18:46:42 Bedside Report will be given. 18:55:46 A sling was placed on the affected arm. End Study - Maximum Contrast Load Max Contrast Load (mL) 905.0 End Study - Radiation Exposure Fluoro Time (minutes) 7.1 End Study - Patient Disposition Complications Transferred To Interventional Outcome No Telemetry Bed No attempt made
[2017-04-04] MEDS: ATORVASTATIN 40 MG TAB PO SCH (19:39)
--- NOTE | 2017-04-04 19:59 | RADRPT ---
EXAM DATE/TIME: 04/04/2017 19:42 [facility] COMPARISON: CHEST SINGLE AP, April 01, 2017, 12:36. INDICATIONS : Post pacemaker placement, evaluate for pneumothorax. MEDICAL HISTORY : Hypercholesterolemia. Hypertension Arthritis. Diabetic. A-fib SURGICAL HISTORY : Cholecystectomy. ENCOUNTER: Initial ACUITY: 1 day PAIN SCORE: 0/10 LOCATION: Bilateral chest FINDINGS: New left subclavian transvenous cardiac pacer now present with lead tips in the right atrium and righ t ventricular apex region. No pneumothorax is seen. Mild cardiomegaly is stable. CONCLUSION: New cardiac pacer as above without pneumothorax or other acute complication. Christiano Go MD on April 04, 2017 at 19:56 Board Certified Radiologist. This report was verified electronically.
[2017-04-04] MEDS: ceFAZolin 2 GM PREMIX 50 ML IV SCH (23:38)
[2017-04-05] VITALS (24 sets, daily range): BP systolic 114–147; BP diastolic 63–86; PULSE 59–66; RESP 16–18; TEMP 97.8–99.9; O2SAT 92–96
[2017-04-05] MEDS: ACETAMINOPHEN/HYDROcodone 325 MG/5 MG TAB PO PRN ×4 (03:21→20:29)
[2017-04-05] MEDS ORDERED: VANCOMYCIN INJ 1,000 MG in SODIUM CHLOR 0.9% 250 ML INJ 250 ML IV ONE (04:00)
[2017-04-05 06:21] LABS: HEMATOCRIT 34.1 % (35.0-46.0); MEAN CELL VOLUME 97.7 FL (80.0-100.0); MEAN CORPUSCULAR HEMOGLOBIN 32.8 PG (27.0-34.0); MEAN CORPUSCULAR HGB CONC 33.5 % (32.0-36.0); PLATELET COUNT 120 TH/MM3 (150-450); RED BLOOD COUNT 3.49 MIL/MM3 (4.00-5.30); RED CELL DISTRIBUTION WIDTH 13.6 % (11.6-17.2); REVIEW FLAG FINAL; WHITE BLOOD COUNT 6.5 TH/MM3 (4.0-11.0)
[2017-04-05] MEDS: INSULIN ASPART SUPPLEMENTAL SCALE SQ SCH ×4 (06:47→20:28)
[2017-04-05] MEDS: GLIMEPIRIDE 2 MG TAB PO SCH ×2 (06:49→16:03)
[2017-04-05] MEDS: metFORMIN HCL 500 MG TAB PO SCH (08:24)
[2017-04-05] MEDS: PANTOPRAZOLE SOD 20 MG DELAYED RELEASE TAB PO SCH (08:25)
[2017-04-05] MEDS: ASPIRIN 325 MG TAB PO SCH (08:25)
[2017-04-05] MEDS: CITALOPRAM HYDROBROMIDE 20 MG TAB PO SCH (08:25)
[2017-04-05] MEDS: LOSARTAN 50 MG TAB PO SCH (08:25)
[2017-04-05] MEDS: ceFAZolin 2 GM PREMIX 50 ML IV SCH ×2 (08:26→16:03)
--- NOTE | 2017-04-05 10:32 | HHI.PR ---
Subjective History of Present Illness Complains of bilateral feet pain, left worse than right No history of injury No fevers or chills Indocin helped with left foot pain yesterday Denies chest pain No shortness of breath No cough or sputum production Good appetite Offers no other complaints Daughters and are at bedside Vitals/Results Vital Signs Vital Signs Date Time Temp Pulse Resp B/P (MAP) Pulse Ox O2 Delivery O2 Flow Rate FiO2 04/05/17 10:20 60 04/05/17 09:56 18 04/05/17 08:17 60 04/05/17 07:36 60 04/05/17 07:36 99.9 60 18 146/75 (98) 95 04/05/17 07:36 95 Room Air 04/05/17 06:00 60 04/05/17 05:00 62 04/05/17 04:00 66 04/05/17 03:00 96 Nasal Cannula 1.00 04/05/17 03:00 98.6 60 18 147/86 (106) 96 04/05/17 03:00 59 04/05/17 02:00 60 04/05/17 01:00 60 04/05/17 00:00 62 04/04/17 23:00 62 04/04/17 23:00 100.1 63 18 124/67 (86) 90 04/04/17 23:00 92 Nasal Cannula 1.00 04/04/17 22:00 60 04/04/17 21:28 18 04/04/17 21:00 60 04/04/17 20:00 98.7 63 18 139/78 (98) 97 04/04/17 20:00 97 Room Air 04/04/17 20:00 63 04/04/17 15:00 98.0 48 16 134/79 (97) 95 04/04/17 15:00 48 04/04/17 15:00 94 Nasal Cannula 2.00 04/04/17 11:00 50 04/04/17 11:00 98.6 50 16 134/79 (97) 94 04/04/17 11:00 94 Nasal Cannula 2.00 CBC/BMP: 04/05/17 0452 04/03/17 0552 Lab Results Laboratory Tests Test 04/05/17 04:52 White Blood Count 6.5 TH/MM3 Red Blood Count 3.49 MIL/MM3 Hemoglobin 11.4 GM/DL Hematocrit 34.1 % Mean Corpuscular Volume 97.7 FL Mean Corpuscular Hemoglobin 32.8 PG Mean Corpuscular Hemoglobin Concent 33.5 % Red Cell Distribution Width 13.6 % Platelet Count 120 TH/MM3 Mean Platelet Volume 8.9 FL Uric Acid 2.5 MG/DL Physical Exam General General Appearance: Well Developed, Well Nourished, No Acute Distress, Comfortable Eyes Eye Exam: Pupils Equal, Pupils Reactive, Sclera White Ears & Nose Ears & Nose Exam: Nasal Mucosa [place] Throat Throat Exam: Oral Mucosa [place] & Moist Neck Neck Exam: Neck Supple, Trachea Midline Pulmonary Resp Exam: Clear Bilaterally, Breath Sounds Equal, No Distress Cardiology CV Exam: Regular, Good Perfusion CV Remarks Telemetry showing paced rhythm Gastrointestinal/Abdomen GI Exam: Soft, Non-Tender, Bowel Sounds Present Musculoskeletal MS Remarks Swelling tenderness and slight warmth over the dorsal aspect of left midfoot Mild swelling and tenderness over the dorsal aspect of right midfoot Integumentary Skin Exam: Warm, Dry Extremeties Extremities Exam: No Edema, Pedal Pulses Palpable Neurologic Neuro Exam: Alert, Awake, Oriented, Speech Clear, Moving All Extremities Psychiatric Psych Exam: Appropriate Responses VTE Prophylaxis VTE Prophylaxis Device: SCDs Assessment/Plan Problem List: (1) SSS (sick sinus syndrome) ICD Codes: I49.5 - Sick sinus syndrome (2) Diarrhea ICD Codes: R19.7 - Diarrhea, unspecified Status: Acute (3) Diabetes mellitus ICD Codes: E11.9 - Type 2 diabetes mellitus without complications Status: Acute (4) Symptomatic bradycardia ICD Codes: R00.1 - Bradycardia, unspecified Status: Acute (5) Chest pain ICD Codes: R07.9 - Chest pain, unspecified Status: Acute (6) Atrial fibrillation ICD Codes: I48.91 - Unspecified atrial fibrillation Status: Chronic Assessment/Plan 76-year-old white female presented to the emergency room with complaint of chest pain, was noted bradycardic received atropine. Recently diagnosed with A. fib s/p Symptomatic bradycardia, hypotension Atrial fibrillation, slow ventricular rate -serial troponin-negative -s/p permanent pacemaker insertion. -was off Coumadin for procedure -Continue aspirin, resume coumadin , f/u INR Reported diarrhea, had 4 stools, resolved now -no more stools Type 2 diabetes -Diabetic diet -cont Amaryl & Januvia . -Accu-Cheks before meals and at bedtime with insulin therapy History hypertension, -Continue home medication Hyperlipidemia -Continue home medication Bilateral foot pain and swelling, suspect gout versus pseudogout -Start Indocin 50 by mouth 3 times a day for 2 days -xrays reviewed, okay -pain management -uric acid level noted -[place] PRN SCDs for DVT prophylaxis D/W pt and family SS for discharge planning We'll follow Problem Qualifiers (1) Diabetes mellitus: Qualified Codes: E11.8 - Type 2 diabetes mellitus with unspecified complications (2) Chest pain: (3) Atrial fibrillation: Qualified Codes: I48.91 - Unspecified atrial fibrillation Octavio Chinchilla MD Apr 05, 2017 10:32
[2017-04-05] MEDS: FAMOTIDINE 20 MG TAB PO SCH ×2 (11:36→20:29)
[2017-04-05] MEDS: INDOMETHACIN 50 MG CAP PO SCH ×2 (11:37→20:28)
[2017-04-05] MEDS ORDERED: WARFARIN SOD 5 MG TAB PO SCH (16:00)
[2017-04-05] MEDS: ATORVASTATIN 40 MG TAB PO SCH (20:29)
[2017-04-06] VITALS (17 sets, daily range): BP systolic 113–135; BP diastolic 69–73; PULSE 60–76; RESP 16–20; TEMP 97.4–98; O2SAT 94–95
[2017-04-06] MEDS: INSULIN ASPART SUPPLEMENTAL SCALE SQ SCH ×2 (06:02→11:00)
[2017-04-06] MEDS: ACETAMINOPHEN/HYDROcodone 325 MG/5 MG TAB PO PRN ×2 (06:03→11:02)
[2017-04-06 06:55] LABS: HEMATOCRIT 34.2 % (35.0-46.0); MEAN CELL VOLUME 96.4 FL (80.0-100.0); MEAN CORPUSCULAR HEMOGLOBIN 32.6 PG (27.0-34.0); MEAN CORPUSCULAR HGB CONC 33.8 % (32.0-36.0); PLATELET COUNT 118 TH/MM3 (150-450); RED BLOOD COUNT 3.54 MIL/MM3 (4.00-5.30); RED CELL DISTRIBUTION WIDTH 13.2 % (11.6-17.2); REVIEW FLAG FINAL
[2017-04-06 07:13] LABS: PROTHROMBIN TIME - PATIENT 11.4 SEC (9.8-11.6)
[2017-04-06] MEDS: metFORMIN HCL 500 MG TAB PO SCH (08:29)
[2017-04-06] MEDS: GLIMEPIRIDE 2 MG TAB PO SCH (08:30)
[2017-04-06] MEDS: INDOMETHACIN 50 MG CAP PO SCH (08:30)
[2017-04-06] MEDS: FAMOTIDINE 20 MG TAB PO SCH (08:30)
[2017-04-06] MEDS: CITALOPRAM HYDROBROMIDE 20 MG TAB PO SCH (08:30)
[2017-04-06] MEDS: LOSARTAN 50 MG TAB PO SCH (08:30)
[2017-04-06] MEDS: PANTOPRAZOLE SOD 20 MG DELAYED RELEASE TAB PO SCH (08:30)
[2017-04-06] MEDS: ASPIRIN 325 MG TAB PO SCH (08:31)
--- NOTE | 2017-04-06 13:31 | HHI.PR ---
Subjective History of Present Illness FEELS BETTER b/l feet pain better w indocin able to ambulate better though still hurts , it bearable Denies chest pain No shortness of breath No cough or sputum production Good appetite Offers no other complaints Daughters and are at bedside again Vitals/Results Vital Signs Vital Signs Date Time Temp Pulse Resp B/P (MAP) Pulse Ox O2 Delivery O2 Flow Rate FiO2 04/06/17 13:04 61 04/06/17 12:09 20 04/06/17 12:07 62 04/06/17 11:50 97.4 60 18 113/69 (84) 95 04/06/17 11:50 60 04/06/17 10:37 62 04/06/17 09:43 74 04/06/17 08:12 73 04/06/17 07:41 97.6 60 18 128/71 (90) 94 04/06/17 07:41 76 04/06/17 06:00 60 04/06/17 05:00 62 04/06/17 04:00 62 04/06/17 03:50 98.0 60 16 135/73 (93) 95 04/06/17 03:00 61 04/06/17 02:00 62 04/06/17 01:00 60 04/06/17 00:00 60 04/05/17 23:45 98.3 63 16 114/63 (80) 93 04/05/17 23:00 60 04/05/17 22:00 60 04/05/17 21:00 62 04/05/17 20:00 98.1 62 16 118/64 (82) 95 04/05/17 20:00 62 04/05/17 20:00 95 Room Air 04/05/17 19:00 60 04/05/17 18:14 60 04/05/17 17:27 60 04/05/17 16:45 60 04/05/17 15:26 97.8 62 18 128/68 (88) 94 04/05/17 15:26 94 Room Air 04/05/17 15:26 62 04/05/17 14:06 60 04/05/17 13:39 63 CBC/BMP: 04/06/17 0622 04/03/17 0552 Lab Results Laboratory Tests Test 04/06/17 06:22 White Blood Count 5.0 TH/MM3 Red Blood Count 3.54 MIL/MM3 Hemoglobin 11.6 GM/DL Hematocrit 34.2 % Mean Corpuscular Volume 96.4 FL Mean Corpuscular Hemoglobin 32.6 PG Mean Corpuscular Hemoglobin Concent 33.8 % Red Cell Distribution Width 13.2 % Platelet Count 118 TH/MM3 Mean Platelet Volume 8.5 FL Prothrombin Time 11.4 SEC Prothromb Time International Ratio 1.0 RATIO Physical Exam General General Appearance: Well Developed, Well Nourished, No Acute Distress, Comfortable Eyes Eye Exam: Pupils Equal, Pupils Reactive, Sclera White Ears & Nose Ears & Nose Exam: Nasal Mucosa [place] Throat Throat Exam: Oral Mucosa [place] & Moist Neck Neck Exam: Neck Supple, Trachea Midline Pulmonary Resp Exam: Clear Bilaterally, Breath Sounds Equal, No Distress Cardiology CV Exam: Regular, Good Perfusion CV Remarks Telemetry showing paced rhythm Gastrointestinal/Abdomen GI Exam: Soft, Non-Tender, Bowel Sounds Present Musculoskeletal MS Remarks decreased Swelling decreased tenderness over left midfoot, No warmth or redness near resolution of swelling and tenderness over right midfoot Integumentary Skin Exam: Warm, Dry Extremeties Extremities Exam: No Edema, Pedal Pulses Palpable Neurologic Neuro Exam: Alert, Awake, Oriented, Speech Clear, Moving All Extremities Psychiatric Psych Exam: Appropriate Responses VTE Prophylaxis VTE Prophylaxis Device: SCDs Assessment/Plan Problem List: (1) SSS (sick sinus syndrome) ICD Codes: I49.5 - Sick sinus syndrome (2) Diarrhea ICD Codes: R19.7 - Diarrhea, unspecified Status: Acute (3) Diabetes mellitus ICD Codes: E11.9 - Type 2 diabetes mellitus without complications Status: Acute (4) Symptomatic bradycardia ICD Codes: R00.1 - Bradycardia, unspecified Status: Acute (5) Chest pain ICD Codes: R07.9 - Chest pain, unspecified Status: Acute (6) Atrial fibrillation ICD Codes: I48.91 - Unspecified atrial fibrillation Status: Chronic Assessment/Plan 76-year-old white female presented to the emergency room with complaint of chest pain, was noted bradycardic received atropine. Recently diagnosed with A. fib s/p Symptomatic bradycardia, hypotension Atrial fibrillation, slow ventricular rate -serial troponin-negative -s/p permanent pacemaker insertion. -was off Coumadin for procedure -Continue aspirin, resume coumadin , f/u INR Reported diarrhea, had 4 stools, resolved now -no more stools Type 2 diabetes -Diabetic diet -cont Amaryl & Januvia . -Accu-Cheks before meals and at bedtime with insulin therapy History hypertension, -Continue home medication Hyperlipidemia -Continue home medication Bilateral foot pain and swelling, suspect gout versus pseudogout -cont Indocin 50 by mouth for 2 to 3 more days. -xrays reviewed, okay -pain management -uric acid level noted -[place] PRN medically stable for d.c d/c home w HHC see MRS see Orders f/u PT/INR on friday , results to dr hunt's office f/u pcp & card d/w PT & her family at bedside in detail Problem Qualifiers (1) Diabetes mellitus: Qualified Codes: E11.8 - Type 2 diabetes mellitus with unspecified complications (2) Chest pain: (3) Atrial fibrillation: Qualified Codes: I48.91 - Unspecified atrial fibrillation Octavio Chinchilla MD Apr 06, 2017 13:31
[2017-04-06] MEDS ORDERED: HYDR-3533 PO (13:44)
[2017-04-06] MEDS ORDERED: INDO50CA PO (13:44)
--- NOTE | 2017-04-06 14:41 | HHI.PR ---
Subjective Remarks diarrhea resolved, . denies chest pain, pacer site is WNL Objective Vital Signs Date Time Temp Pulse Resp B/P (MAP) Pulse Ox O2 Delivery O2 Flow Rate FiO2 04/06/17 14:17 60 04/06/17 13:04 61 04/06/17 12:09 20 04/06/17 12:07 62 04/06/17 11:50 97.4 60 18 113/69 (84) 95 04/06/17 11:50 60 04/06/17 10:37 62 04/06/17 09:43 74 04/06/17 08:12 73 04/06/17 07:41 97.6 60 18 128/71 (90) 94 04/06/17 07:41 76 04/06/17 06:00 60 04/06/17 05:00 62 04/06/17 04:00 62 04/06/17 03:50 98.0 60 16 135/73 (93) 95 04/06/17 03:00 61 04/06/17 02:00 62 04/06/17 01:00 60 04/06/17 00:00 60 04/05/17 23:45 98.3 63 16 114/63 (80) 93 04/05/17 23:00 60 04/05/17 22:00 60 04/05/17 21:00 62 04/05/17 20:00 98.1 62 16 118/64 (82) 95 04/05/17 20:00 62 04/05/17 20:00 95 Room Air 04/05/17 19:00 60 04/05/17 18:14 60 04/05/17 17:27 60 04/05/17 16:45 60 04/05/17 15:26 97.8 62 18 128/68 (88) 94 04/05/17 15:26 94 Room Air 04/05/17 15:26 62 I/O 04/05/17 04/05/17 04/05/17 04/06/17 04/06/17 04/06/17 07:00 15:00 23:00 07:00 15:00 23:00 Intake Total 2745 ml 760 ml Output Total 250 ml 1000 ml Balance 2495 ml 760 ml -1000 ml Intake Oral 450 ml 760 ml IV Total 2295 ml Output Urine Total 250 ml 1000 ml # Voids 4 # Bowel Movements 0 0 0 vss chest: CTA HEART: S1,S2,RR ABD: ST, NT Ext: no edema Result Diagram: 04/06/17 0622 04/03/17 0552 Assessment and Plan Assessment and Plan S/PM dual pacemaker implant by Dr Cui. Coumadin will be restarted afterwards. I will follow as outpt. Dinora Louis MD Apr 06, 2017 14:41
--- NOTE | 2017-04-06 15:13 | HHI.FF ---
Face to Face Verification Diagnosis: (1) Pseudogout (2) Atrial fibrillation with RVR (3) Symptomatic bradycardia Physical Therapy Order: Evaluate and Treat, Improve ambulation, Strength and gait training Home Health Nursing Order: Medical education Signs/symptoms of disease process Medication education-adverse effect Wound care and dressing changes I have seen patient Debbie Ryan on 04/06/17. My clinical findings support the need for the requested home health care services because: Ltd mobility - disease progression Deconditioned w/ increased weakness High risk of falls I certify that my clinical findings support that this patient is homebound because: Unsteady gait/balance Unsafe to leave home unassisted Octavio Chinchilla MD Apr 06, 2017 15:13
--- NOTE | 2017-04-06 21:24 | HHI.DS ---
Discharge Summary Admission Date Apr 01, 2017 at 14:16 Discharge Date: Apr 06, 2017 Admitting Diagnosis chest pains/bradycardia (1) Symptomatic bradycardia ICD Codes: R00.1 - Bradycardia, unspecified Status: Acute (2) Chest pain ICD Codes: R07.9 - Chest pain, unspecified Status: Acute (3) Diabetes mellitus ICD Codes: E11.9 - Type 2 diabetes mellitus without complications Status: Acute (4) Diarrhea ICD Codes: R19.7 - Diarrhea, unspecified Status: Acute (5) Atrial fibrillation ICD Codes: I48.91 - Unspecified atrial fibrillation Status: Chronic Procedures -s/p permanent pacemaker insertion 04/04 CBC/BMP: 04/06/17 0622 04/03/17 0552 Significant Findings Laboratory Tests Test 04/05/17 04:52 04/06/17 06:22 Red Blood Count 3.49 MIL/MM3 (4.00-5.30) 3.54 MIL/MM3 (4.00-5.30) Hemoglobin 11.4 GM/DL (11.6-15.3) Hematocrit 34.1 % (35.0-46.0) 34.2 % (35.0-46.0) Platelet Count 120 TH/MM3 (150-450) 118 TH/MM3 (150-450) Uric Acid 2.5 MG/DL (2.6-6.0) Imaging Last Impressions Chest X-Ray 04/04/17 0000 Signed Impressions: Service Date/Time: Tuesday, April 04, 2017 19:42 - CONCLUSION: New cardiac pacer as above without pneumothorax or other acute complication. Christiano Go MD Hand X-Ray 04/03/17 0000 Signed Impressions: Service Date/Time: March 12:41 - CONCLUSION: 1. Subtle cortical E. regularity of the base of the fifth proximal phalanx which may reflect a subtle fracture. Jasson Campbell MD Foot X-Ray 04/03/17 0000 Signed Impressions: Service Date/Time: March 12:49 - CONCLUSION: Chronic changes and no evidence for acute fracture. Dayana Loera MD Hospital Course This a pleasant 76-year-old white female with history of paroxysmal A. fib, type 2 diabetes, hypertension, hyperlipidemia. Patient was recently diagnosed with a atrial fibrillation, outside machinist apprentice is . Patient presented to the emergency room with complaint of sternum chest pain that started yesterday, indicates that it was a 7 out of 10, no radiation, associated with nausea and feeling of weakness. She did not take any medications at home, pain went away by the time she came to the emergency room. Nothing made the pain better or worse. Denies any recent fever, no chills. She is on Coumadin as well as metoprolol. She was evaluated in the emergency room, patient was noted bradycardic, heart rate 47. Patient was given atropine. Initial cardiac enzymes were negative. Her outside machinist apprentice was consulted and came to see the patient and requested transfer to the main hospital. She was also noted hypotensive therefore request was made to admit to intensive care for closer monitoring. Patient was evaluated by Dr Hunt, he requested consultation with Dr. Cui for possible pacemaker insertion. She received vitamin K to reverse Coumadin. Patient was complaining of loose stools, no watery diarrhea. Indicated has had approximately 4 episodes since last night. Denied any abdominal pain, no nausea, no vomiting. No recent antibiotic use, no recent sick contacts. A stool for C. difficile was ordered and was currently pending. Patient denied any chest pain at this time, no shortness of breath. Patient was admitted for further evaluation and treatment. (1) SSS (sick sinus syndrome) (2) Diarrhea (3) Diabetes mellitus (4) Symptomatic bradycardia (5) Chest pain (6) Atrial fibrillation During the course of the hospitalization, the following took place: 76-year-old white female presented to the emergency room with complaint of chest pain, was noted bradycardic received atropine. Recently diagnosed with A. fib s/p Symptomatic bradycardia, hypotension Atrial fibrillation, slow ventricular rate -serial troponin-negative -s/p permanent pacemaker insertion. -was off Coumadin for procedure -Continued aspirin, resume coumadin , f/u INR -tolerated procedure well, cleared by cardiology Reported diarrhea, had 4 stools, resolved now -no more stools Type 2 diabetes -Diabetic diet -cont Amaryl & Januvia . -Accu-Cheks before meals and at bedtime with insulin therapy -remained stable History hypertension, -Continued home medication Hyperlipidemia -Continued home medication Bilateral foot pain and swelling, suspected gout versus pseudogout -cont Indocin 50 by mouth for 2 to 3 more days. -xrays reviewed, okay -pain management -uric acid level noted -[place] PRN medically stable for d.c d/c home w [facility] f/u PT/INR on friday , results to dr uhnt's office f/u pcp & card d/w PT & her family at bedside in detail Pt Condition on Discharge: Stable Discharge Disposition: Disch w/ Home Health Serv Discharge Instructions DIET: Follow Instructions for: Heart Healthy Diet, Diabetic Diet Fluid Restrictions: NONE Activities you can perform: Weight Bearing as Lilia Other Activity Instructions: FALL PRECAUTIONS Follow up Referrals: Cardiology - 2 Weeks PCP Follow-up - 3-5 Days New Medications: Indomethacin (Indomethacin) 50 Mg Cap 50 MG PO Q12HR for Inflammation for 3 Days, #6 CAP 0 Refills Take with food, milk, or antacids to decrease stomach adverse effects. Continued Medications: Alendronate (Fosamax) 70 Mg Tab 35 MG PO Q7D for Osteoporosis Treatment, #4 TAB 0 Refills Atorvastatin (Atorvastatin) 40 Mg Tab 40 MG PO HS for Cholesterol Management, #30 TAB 0 Refills Cholecalciferol (D3 Maximum Strength) 5,000 Unit Cap 5000 UNITS PO DAILY for Nutritional Supplement, #30 CAP 0 Refills Citalopram (Celexa) 20 Mg Tab 30 MG PO DAILY for Control Depression, #30 TAB 0 Refills Glimepiride (Glimepiride) 2 Mg Tab 2 MG PO BIDAC for Blood Sugar Management, #60 TAB 0 Refills Hydrocodone-Acetaminophen (Lortab) 5-325 Mg Tab 1 TAB PO Q6H PRN for PAIN for 7 Days, #28 TAB 0 Refills (This prescription has been renewed) Losartan (Losartan) 50 Mg Tab 50 MG PO DAILY for Blood Pressure Management, #30 TAB 0 Refills Metoprolol Tartrate (Metoprolol Tartrate) 25 Mg Tab 12.5 MG PO BID, #60 TAB 0 Refills Omeprazole (Omeprazole) 20 Mg Tab 20 MG PO DAILY, #30 TAB 0 Refills Pioglitazone (Actos) 45 Mg Tab 45 MG PO DAILY for Blood Sugar Management, #30 TAB 0 Refills Sitagliptin-Metformin ER (Janumet Xr) 100-1,000 Mg Tab 1 TAB PO DAILY for Blood Sugar Management, #30 TAB 0 Refills Warfarin (Warfarin) 5 Mg Tab 7.5 MG PO DIRECTED for Blood Clot Prevention, #30 TAB 0 Refills Discontinued Medications: Aspirin (Aspirin) 325 Mg Tab 325 MG PO DAILY, #30 TAB 0 Refills Jossy Day Apr 06, 2017 21:24
--- NOTE | 2017-04-07 12:41 | MR ---
cc: TITI MEJIA DATE 04/04/2017 INDICATION 1. Sick sinus syndrome with severe symptomatic bradycardia. 2. Paroxysmal atrial fibrillation. PROCEDURE PERFORMED Placement of [employer] dual-chamber MRI compatible pacemaker. ACCESS SITE Left subclavian vein. EQUIPMENT USED Generator - [employer] Assurity MRI dual-chamber pacemaker, serial number [id number]. Right [employer] - [employer] screw-in atrial lead, serial number [id number]. Right ventricular lead - [employer] 52 cm screw-in ventricular lead serial number [id number]. LEAD TESTING Right Atrial Lead - P-wave 2.7 millivolts, lead impedance 600 ohms. Pacing Threshold 1.25 volts at 0.5 milliseconds. Pacing at 10 volts, no diaphragmatic stimulation. Right ventricular lead - R-wave 9.2 millivolts, lead impedance 830 ohms. Pacing threshold 1.2 volts at 0.25 milliseconds. Pacing at 10 volts, no diaphragmatic stimulation. PARAMETERS MODE: DDD-R, lower rate 60, upper rate 120. DIAGNOSIS Successful placement of [employer] dual chamber MRI compatible pacemaker. DISPOSITION Ms. Ryan will be monitored on telemetry after her procedure. Serial chest x-rays and EKGs will be obtained. She will restart her warfarin tomorrow if stable. I will see her for a wound check and chronic device reprogramming in our office within 3 weeks. She will then see Dr. Louis for long-term device followup. Titi Mejia MD OQ/SSB /7:29 PM /12:20 PM MTDMarisol
== END 2017-04-06 16:47 | disposition home health service (06) | DRG 244 ==
LOC: PHED 11:34 → PHEDA 13:15 → OBSVTOIN 14:16 → HCVR 18:00 → HCIS 04-04 16:28 → HCIN 04-04 19:02
PROVIDERS: ADMIT Specialist; ATTEND Specialist
PROC: 02H63JZ Insertion of Pacemaker Lead into Right Atrium, Percutaneous Approach (ICD-10-PCS; 2017-04-04)
PROC: 02HK3JZ Insertion of Pacemaker Lead into Right Ventricle, Percutaneous Approach (ICD-10-PCS; 2017-04-04)
PROC: 0JH606Z Insertion of Pacemaker, Dual Chamber into Chest Subcutaneous Tissue and Fascia, Open Approach (ICD-10-PCS; principal; 2017-04-04 17:30)
DX: I49.5 Sick sinus syndrome (principal); E11.9 Type 2 diabetes mellitus without complications; E83.42 Hypomagnesemia; R00.1 Bradycardia, unspecified; I48.0 Paroxysmal atrial fibrillation; E78.5 Hyperlipidemia, unspecified; I10 Essential (primary) hypertension; R19.7 Diarrhea, unspecified; M10.9 Gout, unspecified; M11.272 Other chondrocalcinosis, left ankle and foot; M11.271 Other chondrocalcinosis, right ankle and foot; Z79.01 Long term (current) use of anticoagulants; Z79.84 Long term (current) use of oral hypoglycemic drugs
CPT/HCPCS: 33208; 71010; 73120; 73630; 80048; 80053; 80061; 82550; 82948; 83735; 84484; 84550; 85025; 85027; 85610; 85730; 93005; 96374; C1785; C1898; J0461; J0690; J1815; J2250; J3010; J3370; J3430; J3475; J7050